=== PATIENT | female | born 1945 | race Two or more races ===

== ENCOUNTER 2020-07-01 15:59 | Emergency (ER) | payer MEDICARE, SELFPAY ==
[2020-07-01 16:05] VITALS: PULSE 66; RESP 16; TEMP 36.7; O2SAT 99; BMI 25.8
[2020-07-01 16:09] VITALS: BP 161/78
--- NOTE | 2020-07-01 16:13 | ED.FALL ---
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 Mode of arrival: EMS Limitations: no limitations History of Present Illness MD complaint: fall Onset (ago): minute(s) Fall from: standing Fall witnessed: no Place fall occurred: home Loss of consciousness: none Prolonged down time: no Symptoms prior to fall: none Context: tripped/slipped Location of injury: other Location of injury - extremities: right: shoulder and elbow Related Data Previous Rx's Medication Instructions Recorded shower chair 1 ea MISCELLANEOUS .mis 99 Days #1 06/30/20 ea toilet seat 1 ea MISCELLANEOUS .each #1 ea 06/30/20 Allergies Allergy/AdvReac Type Severity Reaction Status Date / Time No Known Allergies Allergy Unverified 05/26/20 15:40 N.K.D.A. Allergy Unknown Uncoded 07/12/14 00:00 Review of Systems Review of Systems: Constitutional : No Fever, No Chills ENT/Mouth : No Ear Pain, No Hoarseness, No sore throat Eyes: No Eye Pain, No Swelling, No Redness, No Foreign Body Cardiovascular : No Chest Pain, No SOB Respiratory : No Cough, No Dyspnea Gastrointestinal : No Nausea, No Vomiting, No Diarrhea, No abdominal Pain Genitourinary : No Dysuria, No Hematuria Musculoskeletal : positive joint pain, No Myalgias, No Joint Swelling Skin : No Skin lacerations, No rash Neuro : No Weakness, No Numbness, No Loss of Consciousness, No Dizziness, No Headache Psych : No Anxiety/Panic, No Depression Heme/Lymph: no easy bruising, no Lymphadenopathy Endocrine : No Polyuria, No Polydipsia All other systems reviewed and are negative [facility] Past Medical History Medical History Cataract HTN (hypertension) Hyperlipidemia Social History Social History Alcohol intake: never Smoked in Last 30 Days: No Use of substances other than those prescribed or required for medical reasons: No Advance Directives: No Advance Directives Information Provided: Yes Physical Exam Vital Signs: Vital Signs: Vital Signs Temp Pulse Resp BP Pulse Ox 07/01/20 16:09 161/78 H 07/01/20 16:05 98.1 F 66 16 99 Body Mass Index 25.8 Appearance: Alert. Oriented X3. No acute distress. Eyes: Pupils equal, round and reactive to light. ENT: Pharynx normal. Atraumatic Neck: Normal inspection. Neck supple. removed c collar denies neck pain and has full ROM without pain CVS: Normal heart rate and rhythm. Pulses normal. Respiratory: No respiratory distress. Breath sounds normal. Abdomen: Soft and nontender. Skin: Skin warm and dry. Normal skin color. Normal skin turgor. Extremities: No lower extremity edema. No calf ttp R elbow and R shoulder ttp, distal NV intact, skin intact Neuro: Oriented X 3. No motor deficit. No sensory deficit. Procedures Orthopedic Splinting/Casting Injury #1: Side: right Upper Extremity Injury Location: shoulder Upper Extremity Immobilizer: sling/shoulder immobilizer MDM - Fall MDM Narrative Medical decision making narrative: 75 yo female no on AC therapy here with mechanical fall at home no head or neck pain c/o isolated pain to R elbow and shoulder - xrays ordered, tylenol for pain, dispo per results and findings. Discharge Plan Discharge Prescriptions: No Action shower chair 1 ea miscellaneous .mis 99 Days Qty: 1 RF: 0 toilet seat 1 ea miscellaneous .each Qty: 1 RF: 0
--- NOTE | 2020-07-01 16:17 | XR_ITS ---
EXAMINATION: XR SHOULDER, RIGHT CLINICAL INFORMATION: Right shoulder pain status post fall. COMPARISON: None TECHNIQUE: AP external rotation, Grashey, scapular Y, and axillary views of the right shoulder. FINDINGS: There is an acute, mildly displaced right humeral surgical neck fracture with mild superolateral displacement of the distal fragment. The right glenohumeral joint is intact. Mild right acromioclavicular degenerative joint changes are seen. Subdeltoid soft tissue swelling is seen. XR/XR shoulder RT min 2V IMPRESSION: 1. Acute, mildly displaced right humeral surgical neck fracture with adjacent subdeltoid swelling. 2. Mild right acromioclavicular degenerative joint changes.
--- NOTE | 2020-07-01 16:17 | XR_ITS ---
EXAMINATION: XR ELBOW, RIGHT CLINICAL INFORMATION: Right elbow pain status post trauma. COMPARISON: None TECHNIQUE: Two views of the right elbow. Positioning is suboptimal. FINDINGS: The bones and soft tissues are normal. No fracture or joint effusion. Alignment is anatomic. Joint spaces are maintained. XR/XR elbow RT 2V IMPRESSION: Unremarkable right elbow.
[2020-07-01] MEDS: Acetaminophen 325 MG TABLET 650 MG PO (16:29)
== END 2020-07-01 18:29 | disposition home or self-care (01) ==
PROVIDERS: Emergency Provider Emergency Medicine; PCP Internal Medicine
DX: S42.211A Unspecified displaced fracture of surgical neck of right humerus, initial encounter for closed fracture (principal); W01.0XXA Fall on same level from slipping, tripping and stumbling without subsequent striking against object, initial encounter; Y93.9 Activity, unspecified; Y92.019 Unspecified place in single-family (private) house as the place of occurrence of the external cause; Y99.9 Unspecified external cause status
CPT/HCPCS: 73030; 73070; 99283; 99284

== ENCOUNTER → 2020-08-30 14:50 | Outpatient (REF) | payer MEDICARE, SELFPAY ==
--- NOTE | 2020-08-30 15:00 | CA_ITS ---
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 Normal LV systolic function with grade 1 diastolic dysfunction 2. Mild aortic stenosis and regurgitation 3. Normal RV systolic pressure 4. No pericardial effusion Findings Left Ventricle Normal left ventricular size, thickness, and systolic function. The visually estimated ejection fraction is between 55-60%. There is paradoxical septal motion consistent with a left bundle branch block. Spectral Doppler is indicative of an impaired relaxation filling pattern. E/E prime ratio is <8, consistent with normal filling pressures. Evidence suggests grade I (mild) diastolic dysfunction. Right Ventricle Normal right ventricular cavity size and systolic function. Atria Both atria are normal in size. There is a highly mobile atrial septum noted. Interatrial shunt cannot be excluded. Aortic Valve There is mild calcification of the aortic valve. There is moderate thickening of the aortic valve. There is mild aortic valve stenosis. The peak aortic gradient is 20 mmHg.The mean gradient is 10 mmHg. The aortic valve area is 1.64 cm2. There is mild aortic valve regurgitation. Mitral Valve There is mild anterior and posterior mitral leaflet thickening. There is moderate mitral annular calcification. There is trace mitral valve regurgitation. There is no mitral valve stenosis. Pulmonic Valve The pulmonic valve was not well visualized. Tricuspid Valve Likely normal tricuspid valve structure and function. There is trace tricuspid valve regurgitation. The right ventricular systolic pressure is normal. The right ventricular systolic pressure is 27 mmHg. Normal right atrial pressure. There is no evidence of pulmonary hypertension. Great Vessels All visible segments of the aorta are normal in size. The pulmonary artery was not well visualized. Venous The inferior vena cava is normal in size and collapses greater than 50% with inspiration. Pericardium/Pleural There is no evidence of pericardial effusion. Prior Study Comparison No significant change compared to prior study dated: 04/19/2020. Measurements 2D Linear Measurements IVSd: 0.84 0.6-0.9/0.6-1.0 cm LVIDd: 3.43 3.9-5.3/4.2-5.9 cm LVIDd Index: 2.03 2.4-3.2/2.2-3.1 cm/m2 LVIDs: 2.57 2.0-3.6 cm LVPWd: 0.82 0.7-1.1 cm Ao Root: 2.90 2.1-3.5 cm LA Diam: 2.60 2.7-3.8/3.0-4.0 cm LAIDs Index: 1.54 1.5-2.3 cm/m2 LV Mass: 179.32 67-162/88-224 g LV Mass Index: 106.11 43-95/49-115 g/m2 LVOT Diam: 2.10 3.0+(-)1.3 cm 2D Systolic Function EF 4C: 55.30 >55% EF 2C: 52.60 >55% Mitral Valve MV Pk E: 0.67 MV PK A: 1.03 MV Decel Time: 261.00 E/A: 0.70 E'Lateral: 5.22 E'Medial: 6.09 E/E' Med: 11.10 E/E' Lat: 12.90 PHT: 76.00 MVA PHT: 2.89 Decel [place]: 2.59 Aortic Valve AoV Pk Mina: 2.24 AoV Mn Mina: 1.46 AoV VTI: 0.48 AoV Pk Grad: 20.00 Aov Mn Grad: 10.00 TEDDY Cont.VTI: 1.64 LVOT LVOT Pk Mina: 0.92 LVOT Mn Mina: 0.60 LVOT VTI: 0.23 LVOT Pk Grad: 3.00 LVOT Mn Grad: 2.00 LVOT Diam: 2.10 LVOT Area: 3.46 Diastolic Function MV Pk E: 0.67 MV Pk A: 1.03 E/A: 0.70 E'Medial: 6.09 E/E' Med: 11.10 E' Laterial: 5.22 E/E' Lat: 12.90 Tricuspid Valve TR Pk Mina: 2.44 TR Pk Grad: 24.00 RA Press: 3.00 RVSP: 27.00 Great Vessels Aorta Ao Root-2D: 2.90 2.0-3.7 cm Ao Asc: 2.90 2.1-3.4 cm Pulmonary Valve PV Pk Mina: 0.98 Peak PV Grad: 4.00 Updated in Other Vendor System with Status of Final Js Fried MD electronically signed on 08/31/2020 1:24:37 PM with status of Final
== END ==
LOC: HO.CARD 14:50
PROVIDERS: PCP Internal Medicine; Visit Provider Internal Medicine Cardiovascular Disease
DX: I42.9 Cardiomyopathy, unspecified (principal); I44.7 Left bundle-branch block, unspecified; I35.0 Nonrheumatic aortic (valve) stenosis
CPT/HCPCS: 93306

== ENCOUNTER 2020-09-05 09:11 | Outpatient (REF) | payer MEDICARE, SELFPAY | END 2020-09-05 09:12 | disposition home or self-care (01) | LOC: HO.HMGCLDS 09:11 | PROVIDERS: PCP Internal Medicine; Visit Provider Internal Medicine | DX: Z20.828 Contact with and (suspected) exposure to other viral communicable diseases (principal) | CPT/HCPCS: C9803; U0003 ==

== ENCOUNTER → 2020-10-14 13:12 | Outpatient (BNVA) | payer MEDICARE, SELFPAY | PROVIDERS: Visit Provider Nurse Practitioner Family | DX: I42.9 Cardiomyopathy, unspecified (principal); I35.0 Nonrheumatic aortic (valve) stenosis; I44.7 Left bundle-branch block, unspecified; I10 Essential (primary) hypertension; E78.00 Pure hypercholesterolemia, unspecified | CPT/HCPCS: 99212 ==

== ENCOUNTER 2020-10-17 08:05 | Outpatient (REF) | payer MEDICARE, SELFPAY ==
--- NOTE | ~2020-10-17 | XR_ITS ---
EXAMINATION: XR SHOULDER, RIGHT CLINICAL INFORMATION: Pain right shoulder. COMPARISON: None. TECHNIQUE: 2 views of the right shoulder. FINDINGS: Again visualized is a surgical neck fracture right humerus with superior migration of distal fragment in relation to the humeral head. There is no dislocation. There is mild tom glenoid inferior spurring. The soft tissues are normal. XR/XR shoulder RT min 2V IMPRESSION: Fracture surgical neck right humerus with mild superior migration of distal fragment in relation to the humeral head. The migrated disc fragment is more prominent than the previous study 06/28/2020. The soft tissues are normal.
== END 2020-10-17 08:06 | disposition home or self-care (01) ==
LOC: HO.HOSX 08:05
PROVIDERS: Visit Provider Physician Assistant
DX: S42.201D Unspecified fracture of upper end of right humerus, subsequent encounter for fracture with routine healing (principal)
CPT/HCPCS: 73030; 99202

== ENCOUNTER 2020-10-29 10:53 | Outpatient (REF) | payer MEDICARE, SELFPAY ==
[2020-10-29 11:12] LABS: MANUAL DIFF FLAG NO
[2020-10-29 11:19] LABS: Basophils Percent Auto 0.6 % (0-2); Eosinophils Absolute Auto 0.3 X10*3/uL (0.0-0.4); Hematocrit 38.1 % (37-47); Hemoglobin 12.4 g/dl (12.0-16.0); Lymphocytes Absolute Auto 1.2 X10*3/uL (1.2-4.9); Lymphocytes Percent Auto 23.2 % (20-40); Mean Corpuscular HGB Conc 32.5 g/dl (31.0-35.0); Mean Corpuscular Hemoglobin 29.7 pg (27.0-33.0); Mean Corpuscular Volume 91.1 fL (80-98); Mean Platelet Volume 11.5 fL (9.4-12.3); Monocytes Absolute Auto 0.5 X10*3/uL (0.1-1.2); Monocytes Percent Auto 9.1 % (2-11); Neutrophils Absolute Auto 3.1 X10*3/uL (2.0-8.3); Neutrophils Percent Auto 62.1 % (45-73); Platelet Count 164 X10*3/uL (160-400); Red Blood Count 4.18 X10*6/uL (4.20-5.50); Red Cell Distribution Width 12.6 % (11.0-16.0)
[2020-10-29 11:31] LABS: Glucose Urine UA NEG (NEG); Leukocyte Esterase Urine 1+ (NEG); Nitrite Urine NEG (NEG); Specific Gravity - Urine 1.025 (1.005-1.025); Urine Blood 1+ (NEG); Urine Ketones NEG (NEG); Urine Protein NEG (NEG-TRACE)
[2020-10-29 11:32] LABS: Appearance Urine HAZY; Color Urine YELLOW
[2020-10-29 11:43] LABS: Bacteria Urine 1+ /LPF; Mucus Urine TRACE /LPF; Squamous Epithelial Cell Urine 4+ /LPF
[2020-10-29 11:48] LABS: Alanine Aminotransferase 9 U/L (0-31); Albumin Level 4.2 g/dL (3.5-5.0); Alkaline Phosphatase 82 U/L (39-117); Anion Gap 13 (12-20); Aspartate Amino Transferase 14 U/L (5-31); B Type Natriuretic Peptide 61 pg/mL (<100); Bilirubin Total 0.6 mg/dL (0.0-1.0); Blood Urea Nitrogen 18 mg/dL (9-16); Carbon Dioxide 27 mmol/L (22-29); Chloride 102 mmol/L (96-108); Cholesterol 168 mg/dL; Estimated Glomerular Filt Rate > 60; Glucose Random 99 mg/dL (60-115); HDL Cholesterol 73 mg/dL; LDL Cholesterol Calculated 81 mg/dl; Potassium 4.3 mmol/L (3.3-5.1); Sodium 138 mmol/L (135-145); Total Protein 7.1 g/dL (6.5-8.0); Triglycerides 74 mg/dL
[2020-10-29 12:04] LABS: Free T4 (Free Thyroxine) 0.99 ng/dL (0.71-1.85); Thyroid Stimulating Hormone 1.59 uIU/mL (0.32-4.0); Vitamin D 25-OH Total 21.2 ng/mL (>30)
[2020-10-31 04:36] LABS: Folate 14.3 ng/mL (> or = 4.0); Vitamin B12 323 pg/mL (200-900)
== END 2020-10-29 10:54 | disposition home or self-care (01) ==
LOC: HO.LAB 10:53
PROVIDERS: PCP Internal Medicine; Visit Provider Internal Medicine
DX: I11.0 Hypertensive heart disease with heart failure (principal); I50.9 Heart failure, unspecified; E78.00 Pure hypercholesterolemia, unspecified
CPT/HCPCS: 36415; 80053; 80061; 81001; 82306; 82607; 82746; 83880; 84439; 84443; 85025

== ENCOUNTER 2020-11-04 11:00 | Outpatient (RCR) | payer MEDICARE, SELFPAY ==
[2020-10-18 15:10] VITALS: BP 130/70; PULSE 78; O2SAT 98
--- NOTE | 2020-10-18 16:11 | MHC.PT.PR ---
[facility] [place] Office [place] Office [place] Office [address] [facility] [phone] F: [phone] F: [phone] F: [phone] F: [phone] Physical Therapy Progress Note Diagnosis: HUMERAL FRACTURE Date of Surgery: NA Date of Evaluation: 10/18/20 Treatments to Date: 1 Cancellations to Date: 0 No Shows to Date: 0 Subjective: please see eval Pain Score and Location: 8 Objective Measures: see eval Assessment: Niya is a pleasant 75 yo female unfortunately fell in June and now arrives for PT consult regarding her displaced humeral fracture. Upon exam impairments include decreased AROM, decreased shoulder strength, altered posture, positioning and soft tissue mobility, increased pain. Functional limitations include decreased ability to use right UE for dressing, bathing and transfer assistance, decreased ability to perform homemaking and recreational tasks (sewing) and disrupted sleep, PT Plan: Frequency and Duration: The patient will be seen 2xweek for 4 weeks Treatment Plan: Therapeutic Exercise Dynamic Therapeutic Activities Neuromuscular Re-ed Manual Therapies Taping Home Exercise Program Patient Education Hot or Cold Pack Reviewed/ Agreed with Student Documentation: Therapist: Thank you once again for your referral.
--- NOTE | 2020-10-19 15:04 | MHC.PT.EP ---
[facility] [place] Office [place] Office [place] Office [address] [phone] F: [phone] F: [phone] F: [phone] F: [phone] Physical Therapy Plan of Care Date of Evaluation: 10/18/20 Date of Surgery: NA Diagnosis: HUMERAL FRACTURE Assessment: Niya is a pleasant 75 yo female unfortunately fell in June and now arrives for PT consult regarding her displaced humeral fracture. Upon exam impairments include decreased AROM, decreased shoulder strength, altered posture, positioning and soft tissue mobility, increased pain. Functional limitations include decreased ability to use right UE for dressing, bathing and transfer assistance, decreased ability to perform homemaking and recreational tasks (sewing) and disrupted sleep, Frequency and Duration: The patient will be seen 2xweek for 4 weeks Short Term Goals: independent HEP with family assist in 2 weeks Nursing Home Goals: shoulder elevation AROM to 120 in 4 weeks Independent HEP to dress self utilizing right upper extremity in 4 weeks to return to sewing in 4 weeks without pain greater than 2/10 Treatment Plan: Modalities to reduce pain, spasms and effusion. Manual therapy to restore motion and function. Therapeutic exercise to improve strength and flexibility. Neuromuscular re-education for posture and balance. Therapeutic activities to return to functional activities of daily living. Electronically signed by: SAGAR RENTERIA PT, DPT Please sign and return to therapist. Thank you for your referral.
--- NOTE | 2020-12-05 14:03 | MHC.PT.DC ---
[facility] [place] Office [place] Office [place] Office [address] [phone] F: [phone] F: [phone] F: [phone] F: [phone] Physical Therapy Discharge Report Diagnosis: HUMERAL FRACTURE Date of Surgery: NA Date of Evaluation: 10/18/20 Date of Discharge: Treatments to Date: 4 Cancellations to Date: 5 No Shows to Date: 4 Discharge Status: Improved Function Discharge Summary: At last attended visit pt was progressing well with program, increasing active range of motion as evidenced by the ability to use right UE to brush and fix her hair. She reports improved sleep and increased ability to perform homemaking tasks. Electronically signed by: Romi Ramos PT, DPT Please sign and return to therapist. Thank you for your referral.
== END 2020-12-05 13:47 | disposition other institution (70) ==
LOC: HO.PT 11:00
PROVIDERS: Visit Provider Internal Medicine
DX: S42.309D Unspecified fracture of shaft of humerus, unspecified arm, subsequent encounter for fracture with routine healing (principal)
CPT/HCPCS: 97110; 97161

== ENCOUNTER 2021-04-13 10:59 | Outpatient (REF) | payer MEDICARE, SELFPAY ==
[2021-04-13 13:51] LABS: MANUAL DIFF FLAG NO
[2021-04-13 13:58] LABS: Basophils Percent Auto 0.4 % (0-2); Eosinophils Absolute Auto 0.2 X10*3/uL (0.0-0.4); Eosinophils Percent Auto 4.1 % (0-4); Hematocrit 38.8 % (37-47); Hemoglobin 12.4 g/dl (12.0-16.0); Imm Gran Abs Auto 0.01 X10*3/uL (0.00-0.03); Imm Gran Pct Auto 0.2 % (0.0-0.4); Lymphocytes Absolute Auto 1.3 X10*3/uL (1.2-4.9); Lymphocytes Percent Auto 28.1 % (20-40); Mean Corpuscular Hemoglobin 29.5 pg (27.0-33.0); Mean Corpuscular Volume 92.4 fL (80-98); Mean Platelet Volume 12.4 fL (9.4-12.3); Monocytes Absolute Auto 0.5 X10*3/uL (0.1-1.2); Monocytes Percent Auto 10.3 % (2-11); Neutrophils Absolute Auto 2.7 X10*3/uL (2.0-8.3); Neutrophils Percent Auto 56.9 % (45-73); Platelet Count 194 X10*3/uL (160-400); Red Cell Distribution Width 12.8 % (11.0-16.0); White Blood Count 4.7 X10*3/uL (4.8-10.8)
[2021-04-13 14:23] LABS: B Type Natriuretic Peptide 53 pg/mL (<100)
[2021-04-13 14:26] LABS: Alanine Aminotransferase 8 U/L (0-31); Albumin Level 4.3 g/dL (3.5-5.0); Alkaline Phosphatase 78 U/L (39-117); Anion Gap 15 (12-20); Aspartate Amino Transferase 19 U/L (5-31); Bilirubin Total 0.5 mg/dL (0.0-1.0); Blood Urea Nitrogen 20 mg/dL (9-16); Calcium 9.4 mg/dL (8.4-10.2); Carbon Dioxide 26 mmol/L (22-29); Chloride 104 mmol/L (96-108); Cholesterol 232 mg/dL; Estimated Glomerular Filt Rate > 60; Glucose Random 92 mg/dL (60-115); HDL Cholesterol 66 mg/dL; LDL Cholesterol Calculated 143 mg/dl; Magnesium 2.1 mg/dL (1.6-2.6); Sodium 140 mmol/L (135-145); Total Protein 7.6 g/dL (6.5-8.0); Triglycerides 117 mg/dL
[2021-04-13 14:44] LABS: Free T4 (Free Thyroxine) 0.92 ng/dL (0.71-1.85); Thyroid Stimulating Hormone 2.43 uIU/mL (0.32-4.0)
[2021-04-13 15:10] LABS: Folate 16.8 ng/mL (> or = 4.0); Vitamin B12 361 pg/mL (200-900)
== END 2021-04-13 11:00 | disposition home or self-care (01) ==
LOC: HO.HMGCLDS 10:59
PROVIDERS: PCP Internal Medicine; Visit Provider Internal Medicine
DX: I50.9 Heart failure, unspecified (principal); E78.00 Pure hypercholesterolemia, unspecified; I25.5 Ischemic cardiomyopathy
CPT/HCPCS: 36415; 80053; 80061; 82607; 82746; 83735; 83880; 84439; 84443; 85025

== ENCOUNTER 2021-04-20 08:31 | Outpatient (REF) | payer MEDICARE, SELFPAY ==
--- NOTE | ~2021-04-20 | XR_ITS ---
EXAMINATION: XR KNEE STANDING, BILATERAL XR KNEE, RIGHT CLINICAL INFORMATION: Right knee pain. COMPARISON: AP standing view of the right and left knee. Lateral and sunrise views of the right knee. TECHNIQUE: Right and left knee radiographs dated 12/03/2014. FINDINGS: RIGHT KNEE: Severe medial compartment joint space narrowing with bony remodeling and subchondral sclerosis. Tricompartmental marginal osteophytes. No acute fracture or dislocation. Ossified loose bodies within the Jimenez's cyst, unchanged. Moderate joint effusion. LEFT KNEE: Severe medial compartment joint space narrowing with mild bony remodeling and subchondral sclerosis. Tricompartmental marginal osteophytes. XR/XR knee standing BI IMPRESSION: 1. Right knee tricompartment osteoarthritis, most severe within the medial compartment. Findings are progressed when compared to the prior examination. Moderate joint effusion and ossified loose bodies within the Jimenez's cyst. 2. Left knee tricompartmental osteoarthritis, minimally progressed when compared to the prior radiographs.
--- NOTE | ~2021-04-20 | XR_ITS ---
EXAMINATION: XR KNEE STANDING, BILATERAL XR KNEE, RIGHT CLINICAL INFORMATION: Right knee pain. COMPARISON: AP standing view of the right and left knee. Lateral and sunrise views of the right knee. TECHNIQUE: Right and left knee radiographs dated 12/03/2014. FINDINGS: RIGHT KNEE: Severe medial compartment joint space narrowing with bony remodeling and subchondral sclerosis. Tricompartmental marginal osteophytes. No acute fracture or dislocation. Ossified loose bodies within the Jimenez's cyst, unchanged. Moderate joint effusion. LEFT KNEE: Severe medial compartment joint space narrowing with mild bony remodeling and subchondral sclerosis. Tricompartmental marginal osteophytes. XR/XR knee RT 2V IMPRESSION: 1. Right knee tricompartment osteoarthritis, most severe within the medial compartment. Findings are progressed when compared to the prior examination. Moderate joint effusion and ossified loose bodies within the Jimenez's cyst. 2. Left knee tricompartmental osteoarthritis, minimally progressed when compared to the prior radiographs.
== END 2021-04-20 08:32 | disposition home or self-care (01) ==
LOC: HO.HOSX 08:31
PROVIDERS: Visit Provider Physician Assistant
DX: M17.0 Bilateral primary osteoarthritis of knee (principal); M25.561 Pain in right knee
CPT/HCPCS: 20610; 73560; 73565; 99202; J1020

== ENCOUNTER → 2021-04-27 14:39 | Outpatient (BNVA) | payer MEDICARE, SELFPAY | PROVIDERS: PCP Internal Medicine; Visit Provider Internal Medicine Cardiovascular Disease | DX: I50.9 Heart failure, unspecified (principal); I35.0 Nonrheumatic aortic (valve) stenosis; I44.7 Left bundle-branch block, unspecified | CPT/HCPCS: 93005; 99212 ==

== ENCOUNTER 2021-07-01 09:01 | Outpatient (REF) | payer MEDICARE, SELFPAY ==
--- NOTE | ~2021-07-01 | MM_ITS ---
EXAMINATION: MM SCREENING DIGITAL BREAST TOMOSYNTHESIS, BILATERAL CLINICAL INFORMATION: Screening. Asymptomatic. The lifetime risk of breast cancer based on the Tyrer-Cuzick Model is 2%. COMPARISON: Mammography: 03/05/2020, 02/14/2019, 12/27/2017 TECHNIQUE: Digital breast tomosynthesis is performed in both the craniocaudal and mediolateral oblique views along with computer-aided detection (CAD). Synthesized 2D images are generated from the tomosynthesis. FINDINGS: The breasts are almost entirely fatty (ACR BI-RADS breast composition Category a). There are no significant masses, abnormal calcifications, or other abnormalities. Background stromal markings are stable. The axilla and skin contours are unremarkable. No significant changes. MM/MM tomosynthesis screening BI IMPRESSION: No mammographic evidence of malignancy. ASSESSMENT: BI-RADS 1: Negative RECOMMENDATION: Routine annual mammography screening. This patient's information was entered into a reminder system with a target due date for their next mammogram.
== END 2021-07-01 09:02 | disposition home or self-care (01) ==
LOC: HO.MAMMO 09:01
PROVIDERS: Visit Provider Internal Medicine
DX: Z12.31 Encounter for screening mammogram for malignant neoplasm of breast (principal)
CPT/HCPCS: 77063; 77067

== ENCOUNTER 2021-07-29 10:36 | Outpatient (REF) | payer MEDICARE, SELFPAY ==
[2021-07-29 13:42] LABS: MANUAL DIFF FLAG NO
[2021-07-29 14:07] LABS: Cholesterol 199 mg/dL; HDL Cholesterol 67 mg/dL; LDL Cholesterol Calculated 113 mg/dl; Triglycerides 95 mg/dL
[2021-07-29 14:12] LABS: B Type Natriuretic Peptide 35 pg/mL (<100); Basophils Percent Auto 0.6 % (0-2); Eosinophils Absolute Auto 0.3 X10*3/uL (0.0-0.4); Eosinophils Percent Auto 5.5 % (0-4); Hematocrit 39.3 % (37.0-47.0); Hemoglobin 12.9 g/dl (12.0-16.0); Imm Gran Abs Auto 0.01 X10*3/uL (0.00-0.03); Imm Gran Pct Auto 0.2 % (0.0-0.4); Lymphocytes Absolute Auto 1.1 X10*3/uL (1.2-4.9); Lymphocytes Percent Auto 23.5 % (20-40); Mean Corpuscular HGB Conc 32.8 g/dl (31.0-35.0); Mean Corpuscular Hemoglobin 30.7 pg (27.0-33.0); Mean Corpuscular Volume 93.6 fL (80.0-98.0); Mean Platelet Volume 12.2 fL (9.4-12.3); Monocytes Absolute Auto 0.4 X10*3/uL (0.1-1.2); Monocytes Percent Auto 8.2 % (2-11); Platelet Count 205 X10*3/uL (160-400); Red Cell Distribution Width 12.5 % (11.0-16.0); White Blood Count 4.8 X10*3/uL (4.8-10.8)
== END 2021-07-29 10:37 | disposition home or self-care (01) ==
LOC: HO.HMGCLDS 10:36
PROVIDERS: PCP Internal Medicine; Visit Provider Internal Medicine
DX: E78.00 Pure hypercholesterolemia, unspecified (principal); I50.9 Heart failure, unspecified; I25.5 Ischemic cardiomyopathy
CPT/HCPCS: 36415; 80061; 83880; 85025

== ENCOUNTER 2021-08-29 11:11 | Emergency (ER) | payer MEDICARE, SELFPAY ==
--- NOTE | ~2021-08-29 | XR_ITS ---
EXAMINATION: LEFT KIDNEY AND LEFT ELBOW. CLINICAL INFORMATION: Fall, question fracture. COMPARISON: None TECHNIQUE: 4 views left knee and 3 views left elbow. FINDINGS: Left knee: There is loss of medial and patellofemoral compartment joint space with tricompartment moderate periarticular spurring. No bony erosive changes seen. No lytic or sclerotic process seen. No abnormal joint effusion. Left elbow: There is no visible acute fracture, dislocation or subluxation seen. The positive anterior fat pad sign suspicious for a fracture however none is visualized. XR/XR knee LT 4V IMPRESSION: Degenerative arthritic changes left knee without any visible acute fracture or dislocation. Positive anterior fat pad sign but no visible fracture seen at this time. Recommend repeat left elbow x-ray and 1-2 weeks.
--- NOTE | ~2021-08-29 | CT_ITS ---
EXAMINATION: CT FACIAL BONES WITHOUT CONTRAST CLINICAL INFORMATION: Fall. Question fracture. COMPARISON: None TECHNIQUE: Axial images through the facial bones without contrast. Sagittal and coronal reconstructions on the technologist workstation were performed. This CT examination was performed using dose optimization techniques as appropriate, variously including the following: *Automated exposure control *Adjustment of mA and/or kV according to patient size (this includes techniques or standardized protocols for targeted exams where dose is matched to indication/reason for exam; i.e. extremities or head) *Use of iterative reconstruction technique DLP: 351 mGy-cm FINDINGS: There are bilateral nasal bone fractures. There is a fracture of the nasal septum. The nasal septum is deviated to the right. No other fracture is seen. The temporomandibular joints are normal. There is membranous soft tissue thickening seen in the paranasal sinuses. There is soft tissue swelling over the nose. The orbits are normal appearing. The temporomandibular joints are normal. CT/CT facial bones wo con IMPRESSION: Bilateral nasal bone fractures and fracture of the nasal septum.
--- NOTE | ~2021-08-29 | CT_ITS ---
EXAMINATION: CT HEAD WITHOUT CONTRAST CLINICAL INFORMATION: Fall COMPARISON: None TECHNIQUE: Contiguous axial imaging was performed from the skull base to vertex without intravenous administration of contrast. This CT examination was performed using dose optimization techniques as appropriate, variously including the following: *Automated exposure control *Adjustment of mA and/or kV according to patient size (this includes techniques or standardized protocols for targeted exams where dose is matched to indication/reason for exam; i.e. extremities or head) *Use of iterative reconstruction technique DLP: 587 mGy-cm FINDINGS: There is no evidence of an extra-axial collection. There is no evidence of intra-axial or extra-axial hemorrhage. The ventricles and extra-axial CSF spaces are prominent suggestive of generalized atrophy. There is nonspecific periventricular white matter disease. No mass, mass effect or infarct is seen. There is some inflammatory seen in the sphenoid sinus and inferior right mastoid air cells. No skull fracture is seen. CT/CT head/brain wo con IMPRESSION: No acute findings. Mild generalized atrophy and nonspecific periventricular white matter disease.
--- NOTE | ~2021-08-29 | XR_ITS ---
EXAMINATION: LEFT KIDNEY AND LEFT ELBOW. CLINICAL INFORMATION: Fall, question fracture. COMPARISON: None TECHNIQUE: 4 views left knee and 3 views left elbow. FINDINGS: Left knee: There is loss of medial and patellofemoral compartment joint space with tricompartment moderate periarticular spurring. No bony erosive changes seen. No lytic or sclerotic process seen. No abnormal joint effusion. Left elbow: There is no visible acute fracture, dislocation or subluxation seen. The positive anterior fat pad sign suspicious for a fracture however none is visualized. XR/XR elbow LT 2V IMPRESSION: Degenerative arthritic changes left knee without any visible acute fracture or dislocation. Positive anterior fat pad sign but no visible fracture seen at this time. Recommend repeat left elbow x-ray and 1-2 weeks.
--- NOTE | ~2021-08-29 | CT_ITS ---
EXAMINATION: CT CERVICAL SPINE WITHOUT CONTRAST CLINICAL INFORMATION: Fall COMPARISON: None TECHNIQUE: Axial images through the cervical spine without contrast. Sagittal and coronal reconstructions were obtained on the technologist workstation. This CT examination was performed using dose optimization techniques as appropriate, variously including the following: *Automated exposure control *Adjustment of mA and/or kV according to patient size (this includes techniques or standardized protocols for targeted exams where dose is matched to indication/reason for exam; i.e. extremities or head) *Use of iterative reconstruction technique DLP: 355 mGy-cm FINDINGS: Bone alignment is normal. No fracture or dislocation is seen. There is degenerative spondylosis at C4-C5 C5-C6 and C6-C7. There are degenerative changes at the C1 dens articulation. There is bilateral multilevel facet arthritis. Disc spaces are normal. Prevertebral soft tissues are normal. There is soft tissue ossification posterior to the C5 and C6 spinous processes likely related to old soft tissue trauma. Lung apices are clear. CT/CT cervical spine wo con IMPRESSION: No fracture or dislocation. Degenerative changes. Fleischner guidelines were followed.
[2021-08-29 11:18] VITALS: BP 122/76; PULSE 88; O2SAT 97
[2021-08-29 11:26] VITALS: BP 170/79; PULSE 74; RESP 16; O2SAT 97; BMI 24.2
--- NOTE | 2021-08-29 14:25 | ED.GENADULT ---
HPI - General Adult General Chief complaint: Fall Stated complaint: fall Time Seen by Provider: 08/29/21 11:42 Source: patient Mode of arrival: ambulatory Limitations: no limitations History of Present Illness HPI narrative: 76-year-old female presents to ED for mechanical fall today. Patient was in a supermarket and was pushing a shopping cart and tripped over Sandals and fell onto his face. Mother states patient did not lose consciousness. Patient only complains of left elbow pain. Patient did not lose any consciousness. patient denies feeling dizzy or having any headache/chest pain/abdominal pain before passing out. Related Data Home Medications Medication Instructions Recorded Confirmed alprazolam 0.25 mg tablet 0.25 mg PO DAILY PRN 10/03/20 02/01/21 furosemide 20 mg tablet 20 mg PO DAILY 10/03/20 02/01/21 Previous Rx's Medication Instructions Recorded toilet seat 1 ea MISCELLANEOUS .each #1 ea 07/05/20 ascorbate calcium (vitamin C) 500 500 mg PO DAILY #30 tab 10/03/20 mg tablet cholecalciferol (vitamin D3) 50 50 mcg PO DAILY #60 cap 10/03/20 mcg (2,000 unit) capsule cyanocobalamin (vitamin B-12) 1,000 mcg PO DAILY #30 cap 10/03/20 1,000 mcg capsule donepezil 5 mg tablet (Aricept) 5 mg PO BEDTIME #30 tab 10/03/20 citalopram 10 mg tablet 10 mg PO DAILY #90 tab 12/06/20 aspirin 81 mg tablet,delayed 81 mg PO DAILY 90 Days #90 tab 05/25/21 release aspirin 81 mg tablet,delayed 81 mg PO DAILY 90 Days #90 tab 05/25/21 release (Adult Aspirin Regimen) atorvastatin 20 mg tablet 20 mg PO DAILY #90 tab 05/25/21 carvedilol 25 mg tablet 25 mg PO BID 90 Days #180 tab 05/25/21 losartan 100 mg tablet 100 mg PO DAILY 90 Days #90 tab 05/25/21 amoxicillin 875 mg-potassium 1 tab PO Q12H 10 Days #20 tab 08/29/21 clavulanate 125 mg tablet (Augmentin) Allergies Allergy/AdvReac Type Severity Reaction Status Date / Time No Known Allergies Allergy Verified 07/13/21 14:36 Review of Systems Review of Systems: Yes all other systems are reviewed and are negative Constitutional: Constitutional: Reports as per HPI and Reports no additional constitutional complaints Eyes: Eyes: Reports as per HPI and Reports no additional eye complaints ENT: Reports system reviewed and no additional complaints, except as documented and Reports as per HPI Comments: laceration on nares PMFSH Past Medical History Medical History Anxiety Aortic stenosis Cataract Heart failure, unspecified HTN (hypertension) Hypercholesterolemia Hyperlipidemia Impaired glucose tolerance Ischemic cardiomyopathy LBBB (left bundle branch block) Osteoarthritis Vitamin D deficiency Surgical History History of cataract surgery History of section Family History Family History Father Cancer Mother Hypertension Brother No problems noted. Sister No problems noted. Son No problems noted. Daughter No problems noted. Social History Social History Housing: Apartment Alcohol intake: never Patient Tobacco Use Status: Never used Tobacco e-Cigarette/Vaping Use: Never Used Second Hand Smoke Exposure: No Advance Directives: Yes Advance Directives Information Provided: Yes Advance Directives on File: No Current occupational status: disabled Current occupation: rt handed Physical Exam Vital Signs: Vital Signs: Last Vital Signs Pulse 74 08/29/21 11:26 Resp 16 08/29/21 11:26 BP 170/79 H 08/29/21 11:26 Pulse Ox 97 08/29/21 11:26 BMI result Body Mass Index 24.2 Const: General: cooperative, healthy appearing, comfortable, no acute distress, well developed, alert, awake and Physically active Orientation/consciousness: patient oriented x3 HENMT: Head: Yes normal to inspection, Yes No palpable skull fracture present and Yes normocephalic Head images: 1. Very superficial laceration/abrasion that does not need suture repair 2. Positive for ecchymosis Eyes: General: appearance normal, both eyes and all related structures Neck: Neck: Yes normal visual inspection, Yes full ROM, Yes no lymphadenopathy, Yes no meningeal signs, Yes trachea midline, Yes supple, No anterior neck swelling and No tender Chest: Chest palpation & inspection: normal inspection of the chest and normal palpation of entire chest wall Resp: Effort & Inspection: normal respiratory effort and able to speak in complete sentences Auscultation: clear to auscultation bilaterally Cardio: Jugular venous distension: no JVD Heart sounds: S1 normal heart sound present and S2 normal heart sound present GI: Inspection: Yes normal to inspection and No abdominal wall ecchymosis Palpation (GI): Soft to palpation, not firm, nontender, no guarding and not rigid : General: No CVA tenderness and Yes no CVA tenderness Back/Spine/Pelvis: Back: no CVA tenderness, No CVA tenderness and No back tenderness Skin: General skin exam: no rashes or lesions noted and elasticity normal Neuro: General: patient oriented x3, gait normal, no meningeal signs and CN's II-XI intact bilaterally Cranial nerves: Yes CN's II-XII intact bilaterally Extrem: General: Yes normal to inspection and Yes full ROM Elbow/forearm/wrist images: 1. Positive for tenderness on palpation. Patient complete range of motion of elbow. Motor/neuro/vascular exam intact. Patient able to flex and extend elbow but with pain. Knee images: 1. Positive for abrasion and tenderness. Negative for ecchymosis, deformity, elasticity, or crepitus. Motor/neuro/vascular exam intact. Psych: Appearance: grossly normal, well kempt and not disheveled Course Course Course Narrative: Mechanical fall. no labs indicated Reevaluation(s) Reevaluation #1: Elbow fracture and nasal fracture. Negative for nasal septal hematoma. Patient is discharged with antibiotics. Patient placed in posterior splint and sling. Time: 15:58 Discharge Plan Discharge Clinical Impression: Elbow fracture, left, Fracture of nasal bones Patient Disposition: Home, Self-Care Instructions: Nasal Fracture (ED), Elbow Fracture (ED), How to Use a Sling (ED) Additional Instructions: Mckeon tomograf?a computarizada muestra fractura nasal y fractura de codo. Deber? realizar un seguimiento con fractura de codo del pie ortop?dico y cirug?a maxilofacial por fractura nasal. Regrese al servicio de urgencias de inmediato si tiene dolor de pecho, dificultad para respirar, sangrado rectal, v?mitos de cabrera, dolor abdominal, dolor de pecho, dificultad para respirar, dolor de vivi, mareos, sangrado de los o?dos o cualquier otro s?ntoma que le preocupe. No tome delon?n CLIFTON, aspirina, Plavix, con Coumadin hasta el seguimiento.No se suene la nariz ni estornude. Please call [facility] for follow up at [phone]. Address [address] [place] [id number] Prescriptions: New amoxicillin-pot clavulanate [Augmentin] 875-125 mg tablet 1 tab PO Q12H 10 Days Qty: 20 RF: 0 No Action toilet seat 1 ea miscellaneous .each Qty: 1 RF: 0 citalopram 10 mg tablet 10 mg PO DAILY Qty: 90 RF: 2 aspirin [Adult Aspirin Regimen] 81 mg tablet,delayed release (DR/EC) 81 mg PO DAILY 90 Days Qty: 90 RF: 3 atorvastatin 20 mg tablet 20 mg PO DAILY Qty: 90 RF: 1 carvedilol 25 mg tablet 25 mg PO BID 90 Days Qty: 180 RF: 2 losartan 100 mg tablet 100 mg PO DAILY 90 Days Qty: 90 RF: 2 aspirin 81 mg tablet,delayed release (DR/EC) 81 mg PO DAILY 90 Days Qty: 90 RF: 2 alprazolam 0.25 mg tablet 0.25 mg PO DAILY PRNRF: 0 furosemide 20 mg tablet 20 mg PO DAILY RF: 0 cyanocobalamin (vitamin B-12) 1,000 mcg capsule 1,000 mcg PO DAILY Qty: 30 RF: 3 cholecalciferol (vitamin D3) 50 mcg (2,000 unit) capsule 50 mcg PO DAILY Qty: 60 RF: 0 ascorbate calcium (vitamin C) 500 mg tablet 500 mg PO DAILY Qty: 30 RF: 0 donepezil [Aricept] 5 mg tablet 5 mg PO BEDTIME Qty: 30 RF: 2 Referrals: Jeremy Gaming MD [Physician] - 2 days (Left elbow fracture.) Ryan Oh [Physician] - 2 days (nasal fracture) Interventions: ED Discharge Assessment Last Done: 08/29/21 16:37 Discharge Date/Time: 08/29/21 16:39 Print Language: Ukrainian
[2021-08-29] MEDS: Diphth,Pertus(ACell),Tet Adult 0.5 ML SYRINGE IM (15:05)
== END 2021-08-29 16:39 | disposition home or self-care (01) ==
PROVIDERS: Emergency Provider Emergency Medicine; PCP Internal Medicine
DX: S02.2XXA Fracture of nasal bones, initial encounter for closed fracture (principal); S42.402A Unspecified fracture of lower end of left humerus, initial encounter for closed fracture; S80.212A Abrasion, left knee, initial encounter; I10 Essential (primary) hypertension; W01.0XXA Fall on same level from slipping, tripping and stumbling without subsequent striking against object, initial encounter; Y93.89 Activity, other specified; Y92.512 Supermarket, store or market as the place of occurrence of the external cause; Y99.9 Unspecified external cause status
CPT/HCPCS: 70450; 70486; 72125; 73070; 73564; 90471; 90715; 99282; 99284

== ENCOUNTER 2021-08-30 03:38 | Emergency (ER) | payer MEDICARE, SELFPAY ==
--- NOTE | ~2021-08-30 | XR_ITS ---
EXAMINATION: XR HAND, LEFT CLINICAL INFORMATION: Fall COMPARISON: None TECHNIQUE: 3 views of the left hand. FINDINGS: No fracture or dislocation. Alignment is maintained. Diffuse joint space narrowing throughout the interphalangeal joints. There is sclerosis with osteophyte formation and gull wing deformity. Advanced degenerative changes at the triscaphe joint and first carpometacarpal joint. XR/XR hand wrist LT IMPRESSION: No acute fracture or malalignment. Advanced degenerative changes throughout the hand and wrist. Appearance of erosive osteoarthritis.
[2021-08-30 03:48] VITALS: BP 179/60; PULSE 99; RESP 20; TEMP 37; O2SAT 95; BMI 30.2
--- NOTE | 2021-08-30 04:24 | ED.EXTPRO ---
HPI - Extremity Problem General Chief complaint: Extremity Injury, Upper Stated complaint: arm pain Time Seen by Provider: 08/30/21 04:24 Source: patient Mode of arrival: ambulatory Limitations: no limitations History of Present Illness HPI Narrative: Patient fell slipped and fell 2 days ago landing on her left hand was seen here x-ray of the hand not done x-ray of the elbow showed mild joint effusion, splint was applied patient comes here as she has too much pain in the left wrist area and at the base of left thumb Related Data Home Medications Medication Instructions Recorded Confirmed alprazolam 0.25 mg tablet 0.25 mg PO DAILY PRN 10/03/20 02/01/21 furosemide 20 mg tablet 20 mg PO DAILY 10/03/20 02/01/21 Previous Rx's Medication Instructions Recorded toilet seat 1 ea MISCELLANEOUS .each #1 ea 07/05/20 ascorbate calcium (vitamin C) 500 500 mg PO DAILY #30 tab 10/03/20 mg tablet cholecalciferol (vitamin D3) 50 50 mcg PO DAILY #60 cap 10/03/20 mcg (2,000 unit) capsule cyanocobalamin (vitamin B-12) 1,000 mcg PO DAILY #30 cap 10/03/20 1,000 mcg capsule donepezil 5 mg tablet (Aricept) 5 mg PO BEDTIME #30 tab 10/03/20 citalopram 10 mg tablet 10 mg PO DAILY #90 tab 12/06/20 aspirin 81 mg tablet,delayed 81 mg PO DAILY 90 Days #90 tab 05/25/21 release aspirin 81 mg tablet,delayed 81 mg PO DAILY 90 Days #90 tab 05/25/21 release (Adult Aspirin Regimen) atorvastatin 20 mg tablet 20 mg PO DAILY #90 tab 05/25/21 carvedilol 25 mg tablet 25 mg PO BID 90 Days #180 tab 05/25/21 losartan 100 mg tablet 100 mg PO DAILY 90 Days #90 tab 05/25/21 amoxicillin 875 mg-potassium 1 tab PO Q12H 10 Days #20 tab 08/29/21 clavulanate 125 mg tablet (Augmentin) tramadol 50 mg tablet 50 mg PO Q6H PRN #20 tab 08/30/21 Allergies Allergy/AdvReac Type Severity Reaction Status Date / Time No Known Allergies Allergy Verified 07/13/21 14:36 Review of Systems Review of Systems: Yes all other systems are reviewed and are negative PMFSH Past Medical History Medical History Anxiety Aortic stenosis Cataract Heart failure, unspecified HTN (hypertension) Hypercholesterolemia Hyperlipidemia Impaired glucose tolerance Ischemic cardiomyopathy LBBB (left bundle branch block) Osteoarthritis Vitamin D deficiency Surgical History History of cataract surgery History of section Family History Family History Father Cancer Mother Hypertension Brother No problems noted. Sister No problems noted. Son No problems noted. Daughter No problems noted. Social History Social History Housing: Apartment Alcohol intake: never Patient Tobacco Use Status: Never used Tobacco e-Cigarette/Vaping Use: Never Used Second Hand Smoke Exposure: No Advance Directives: No Advance Directives Information Provided: No Current occupational status: disabled Current occupation: rt handed Physical Exam Vital Signs: Vital Signs: Last Vital Signs Temp 98.6 F 08/30/21 03:48 Pulse 99 08/30/21 03:48 Resp 20 08/30/21 03:48 BP 179/60 H 08/30/21 03:48 Pulse Ox 95 08/30/21 03:48 BMI result Body Mass Index 30.2 Const: General: cooperative, comfortable, no acute distress and well developed Orientation/consciousness: patient oriented x3 HENMT: Head: Yes normocephalic and Yes periorbital ecchymosis Neck: Neck: Yes normal visual inspection and Yes full ROM Resp: Effort & Inspection: normal respiratory effort Auscultation: clear to auscultation bilaterally Cardio: Palpation: normal PMI Rate: regular rate Neuro: General: patient oriented x3 and gait normal Extrem: Hand/finger images: 1. Tenderness with swelling neurovascular intact MDM - Extremity (Nontraumatic) MDM Narrative Medical decision making narrative: X-ray negative for fracture of left hand will give pain medication for contusion of left hand patient is to follow Orthopedics Discharge Plan Discharge Clinical Impression: Contusion of hand, left Qualifiers: Encounter type: initial encounter Qualified Code(s): S60.222A - Contusion of left hand, initial encounter Occult closed fracture of left elbow Qualifiers: Encounter type: initial encounter Qualified Code(s): S42.402A - Unspecified fracture of lower end of left humerus, initial encounter for closed fracture Patient Disposition: Home, Self-Care Instructions: Elbow Fracture (ED), Contusion in Adults (ED) Additional Instructions: Wear the sling as given to you Pain medication as prescribed keep your left arm elevated Prescriptions: New tramadol 50 mg tablet 50 mg PO Q6H PRN (Reason: pain) Qty: 20 RF: 0 No Action toilet seat 1 ea miscellaneous .each Qty: 1 RF: 0 citalopram 10 mg tablet 10 mg PO DAILY Qty: 90 RF: 2 aspirin [Adult Aspirin Regimen] 81 mg tablet,delayed release (DR/EC) 81 mg PO DAILY 90 Days Qty: 90 RF: 3 atorvastatin 20 mg tablet 20 mg PO DAILY Qty: 90 RF: 1 carvedilol 25 mg tablet 25 mg PO BID 90 Days Qty: 180 RF: 2 losartan 100 mg tablet 100 mg PO DAILY 90 Days Qty: 90 RF: 2 aspirin 81 mg tablet,delayed release (DR/EC) 81 mg PO DAILY 90 Days Qty: 90 RF: 2 amoxicillin-pot clavulanate [Augmentin] 875-125 mg tablet 1 tab PO Q12H 10 Days Qty: 20 RF: 0 alprazolam 0.25 mg tablet 0.25 mg PO DAILY PRNRF: 0 furosemide 20 mg tablet 20 mg PO DAILY RF: 0 cyanocobalamin (vitamin B-12) 1,000 mcg capsule 1,000 mcg PO DAILY Qty: 30 RF: 3 cholecalciferol (vitamin D3) 50 mcg (2,000 unit) capsule 50 mcg PO DAILY Qty: 60 RF: 0 ascorbate calcium (vitamin C) 500 mg tablet 500 mg PO DAILY Qty: 30 RF: 0 donepezil [Aricept] 5 mg tablet 5 mg PO BEDTIME Qty: 30 RF: 2
[2021-08-30] MEDS: oxyCODONE HCl Immed Release 5 MG TABLET PO (05:35)
[2021-08-30 05:40] VITALS: BP 160/84; PULSE 88; RESP 16
== END 2021-08-30 05:57 | disposition home or self-care (01) ==
PROVIDERS: Emergency Provider Internal Medicine
DX: S60.222A Contusion of left hand, initial encounter (principal); S42.402A Unspecified fracture of lower end of left humerus, initial encounter for closed fracture; S42.334A Nondisplaced oblique fracture of shaft of humerus, right arm, initial encounter for closed fracture; W01.0XXA Fall on same level from slipping, tripping and stumbling without subsequent striking against object, initial encounter; Y93.9 Activity, unspecified; Y92.9 Unspecified place or not applicable; Y99.9 Unspecified external cause status; Z79.899 Other long term (current) drug therapy
CPT/HCPCS: 73110; 73130; 99284

== ENCOUNTER 2021-09-14 07:39 | Outpatient (REF) | payer MEDICARE, SELFPAY ==
--- NOTE | ~2021-09-14 | XR_ITS ---
EXAMINATION: XR ELBOW, LEFT CLINICAL INFORMATION: Pain in the elbow COMPARISON: None TECHNIQUE: AP, lateral, and oblique views of the left elbow. FINDINGS: No fracture or dislocation. Alignment is anatomic. Joint spaces are maintained. No elbow joint effusion. The soft tissues are somewhat swollen along the medial aspect. XR/XR elbow LT min 3V IMPRESSION: Mild soft tissue swelling. No osseous abnormality.
== END 2021-09-14 07:40 | disposition home or self-care (01) ==
LOC: HO.HOSX 07:39
PROVIDERS: Visit Provider Physician Assistant
DX: S50.02XA Contusion of left elbow, initial encounter (principal); S63.502A Unspecified sprain of left wrist, initial encounter; W18.30XA Fall on same level, unspecified, initial encounter; Y93.9 Activity, unspecified; Y92.9 Unspecified place or not applicable; Y99.9 Unspecified external cause status
CPT/HCPCS: 73080; 99202

== ENCOUNTER → 2021-11-02 07:37 | Outpatient (REF) | payer MEDICARE, SELFPAY ==
--- NOTE | 2021-11-02 07:40 | CA_ITS ---
Transthoracic Echocardiogram Patient (Last, First, Middle): Niya Noriega, Gender: Female Date of : 1945 Age: 76 Procedure Date: 11/02/2021 Procedure Type: Transthoracic Echocardiogram Location: OP Height: 160.02 cm Weight: 61.24 kg BSA: 1.64 m2 Heart Rate: bpm BP: 148 / 78 mmHg Electrical Automation Engineer: MELINDA Referring MD: Js Fried MD Symptoms: I35.0 - Nonrheumatic aortic (valve) stenosis Study Quality: Good ECG Rhythm: Sinus Conclusions: - The left ventricular systolic function is normal. The calculated ejection fraction is 59% by biplane method. - There is moderate calcification of the aortic valve. There is mild to moderate aortic valve stenosis. - There is moderate mitral annular calcification. Findings Left Ventricle Normal left ventricular cavity size. There is normal left ventricular wall thickness. The left ventricular systolic function is normal. The calculated ejection fraction is 59% by biplane method. There is no evidence of regional wall motion abnormalities. E/E prime ratio is between 8 and 15 consistent with indeterminate filling pressures. Evidence suggests grade I (mild) diastolic dysfunction. Right Ventricle Normal right ventricular cavity size and systolic function. Atria Both atria are normal in size. Aortic Valve There is moderate calcification of the aortic valve. There is mild to moderate aortic valve stenosis. The peak aortic velocity is 2.35 m/s with a calculated peak gradient of 22 mmHg. The mean gradient is 12 mmHg. The aortic valve area is 1.29 cm2. There is mild aortic valve regurgitation. Dimensionless index 0.4. Stroke volume index 40cc. Mitral Valve There is moderate mitral annular calcification. There is trace mitral valve regurgitation. There is no mitral valve stenosis. Pulmonic Valve The pulmonic valve was not well visualized. Tricuspid Valve Normal tricuspid valve structure. There is trace tricuspid valve regurgitation. The pulmonary artery systolic pressure is normal. Great Vessels The aorta was not well visualized. The sinuses of valsalva is normal in size. Small plaque is seen in the sino tubular ridge. Venous The inferior vena cava is normal in size and collapses greater than 50% with inspiration. Pericardium/Pleural There is no evidence of pericardial effusion. Prior Study Comparison Changes noted compared to prior study dated: 08/30/2020. Slight progression of aortic valve stenosis. Measurements 2D Linear Measurements IVSd: 0.82 0.6-0.9/0.6-1.0 cm LVIDd: 3.91 3.9-5.3/4.2-5.9 cm LVIDd Index: 2.38 2.4-3.2/2.2-3.1 cm/m2 LVIDs: 2.91 2.0-3.6 cm LVPWd: 1.02 0.7-1.1 cm Ao Root: 2.90 2.1-3.5 cm LA Diam: 2.50 2.7-3.8/3.0-4.0 cm LAIDs Index: 1.52 1.5-2.3 cm/m2 LV Mass: 135.13 67-162/88-224 g LV Mass Index: 82.40 43-95/49-115 g/m2 LVOT Diam: 2.00 3.0+(-)1.3 cm 2D Systolic Function EF 4C: 56.10 >55% EF 2C: 60.60 >55% EF BiP: 58.50 >55% Mitral Valve MV Pk E: 0.72 MV PK A: 0.90 MV Decel Time: 311.00 E/A: 0.80 E'Lateral: 5.87 E'Medial: 5.11 E/E' Med: 14.10 E/E' Lat: 12.30 PHT: 91.00 MVA PHT: 2.42 Decel [place]: 2.31 Aortic Valve AoV Pk Mina: 2.35 AoV Mn Mina: 1.63 AoV VTI: 0.51 AoV Pk Grad: 22.00 Aov Mn Grad: 12.00 TEDDY Cont.VTI: 1.29 AI Pk Mina: 3.90 AI [place]: 1.67 LVOT LVOT Pk Mina: 0.90 LVOT Mn Mina: 0.65 LVOT VTI: 0.21 LVOT Pk Grad: 3.00 LVOT Mn Grad: 2.00 LVOT Diam: 2.00 LVOT Area: 3.14 Diastolic Function MV Pk E: 0.72 MV Pk A: 0.90 E/A: 0.80 E'Medial: 5.11 E/E' Med: 14.10 E' Laterial: 5.87 E/E' Lat: 12.30 Right Ventricle TAPSE (mm): 2.40 TVS' Mina: 14.10 Tricuspid Valve TR Pk Mina: 2.50 TR Pk Grad: 25.00 RA Press: 3.00 RVSP: 28.00 Great Vessels Aorta Ao Root-2D: 2.90 2.0-3.7 cm Updated in Other Vendor System with Status of Final Donnie Abarca MD electronically signed on 11/04/2021 1:34:56 PM with status of Final
== END ==
LOC: HO.CARD 07:37
PROVIDERS: PCP Internal Medicine; Visit Provider Internal Medicine Cardiovascular Disease
DX: I35.0 Nonrheumatic aortic (valve) stenosis (principal)
CPT/HCPCS: 93306

== ENCOUNTER → 2021-11-07 14:36 | Outpatient (BNVA) | payer MEDICARE, SELFPAY | PROVIDERS: PCP Internal Medicine; Referring Provider Internal Medicine; Visit Provider Internal Medicine Cardiovascular Disease | DX: I35.0 Nonrheumatic aortic (valve) stenosis (principal); I44.7 Left bundle-branch block, unspecified | CPT/HCPCS: 99212 ==

== ENCOUNTER → 2021-11-15 10:09 | Outpatient (BNVA) | payer MEDICARE, SELFPAY | PROVIDERS: PCP Internal Medicine; Visit Provider Physician Assistant | DX: Z01.818 Encounter for other preprocedural examination (principal); K59.09 Other constipation | CPT/HCPCS: 99212 ==

== ENCOUNTER 2021-12-14 14:27 | Outpatient (REF) | payer OTHER, SELFPAY | END 2021-12-14 14:28 | disposition home or self-care (01) | LOC: HO.HOSX 14:27 | PROVIDERS: PCP Internal Medicine; Visit Provider Physician Assistant | DX: G56.02 Carpal tunnel syndrome, left upper limb (principal) | CPT/HCPCS: 99202 ==

== ENCOUNTER → 2022-06-04 15:25 | Outpatient (BNVA) | payer OTHER, SELFPAY | PROVIDERS: PCP Internal Medicine; Visit Provider Physician Assistant | DX: M17.0 Bilateral primary osteoarthritis of knee (principal) | CPT/HCPCS: 20610; 99212; J1020 ==

== ENCOUNTER 2022-06-12 12:56 | Outpatient (REF) | payer OTHER, SELFPAY ==
--- NOTE | ~2022-06-12 | MM_ITS ---
EXAMINATION: BONE DENSITOMETRY CLINICAL INDICATION: Osteoporosis. COMPARISON: Previous BD dated 04/19/2020 and baseline BD dated 07/07/2009. TECHNIQUE: Using a [employer] DXA System (software version: 13.1) manufactured by [employer], dual-energy x-ray absorptiometry was performed of the lumbar spine and left hip. The images are of good technical quality. Summary results are attached. FINDINGS: AP SPINE L1-L4: Current: BMD 1.122 g/cm2, Z-score 1.7, T-score -0.5, normal, 0.1% increase from previous, 1.7% increase from baseline (<5% change is not significant). Prior: BMD 1.121 g/cm2. Baseline: BMD 1.103 g/cm2. LEFT FEMUR, NECK: Current: BMD 0.681 g/cm2, Z-score -0.2, T-score -2.6, osteoporosis. Prior: BMD 0.739 g/cm2. Baseline: BMD 0.854 g/cm2. LEFT FEMUR, TOTAL: Current: BMD 0.784 g/cm2, Z-score 0.4, T-score -1.8, osteopenia, 2.2% decrease from previous, 18.4% decrease from baseline (<5% change is not significant). Prior: BMD 0.802 g/cm2. Baseline: BMD 0.961 g/cm2. IDENTIFIED RISK FACTORS: Menopause, osteoporosis, history of fracture (adult). HISTORY OF FRACTURE: Elbow. MEDICATIONS: Vitamin D. MM/XR DEXA axial skeleton IMPRESSION: 1. DIAGNOSIS: Osteoporosis based on the lowest T-score value of -2.6 in the femoral neck applying World Health Organization criteria. 2. 10-YEAR FRACTURE RISK PREDICTION, FRAX: According to the guidelines, FRAX calculation should only be performed on patients in the osteopenia bone density category. Therefore, FRAX was not performed on this patient. 3. Treatment Recommendations: NOF guidelines recommend consideration for treatment in postmenopausal women and men age 50 and older presenting with the following: -A hip or vertebral (clinical or morphometric) fracture. -T-score less than or equal to -2.5 at the femoral neck or spine after appropriate evaluation to exclude secondary causes. -Low bone mass at the hip or spine and a 10-year fracture probability by FRAX of greater than or equal to 3% for hip fracture or greater than or equal to 20% for major osteoporotic fracture based on the [place] adapted WHO algorithm. 4. Other Recommendations: All treatment decisions require clinical judgment and consideration of individual patient factors, including patient preferences, comorbidities, previous drug use, risk factors not captured in the FRAX model (e.g. frailty, falls, vitamin D deficiency, increased bone turnover, interval significant decline in bone density) and possible under or overestimation of fracture risk by FRAX. Additional medical evaluation for secondary cause of low bone mineral density may be appropriate. FUTURE SCAN RECOMMENDATION: People with diagnosed cases of osteoporosis or at high risk for fracture should have regular bone mineral density tests. For patients eligible for Medicare, routine testing is allowed once every 2 years. The testing frequency can be increased to one year for patients who have rapidly progressing disease, those who are receiving or discontinuing medical therapy to restore bone mass, or have additional risk factors.
== END 2022-06-12 12:57 | disposition home or self-care (01) ==
LOC: HO.MAMMO 12:56
PROVIDERS: PCP Internal Medicine; Visit Provider Internal Medicine
DX: M81.0 Age-related osteoporosis without current pathological fracture (principal)
CPT/HCPCS: 77080

== ENCOUNTER 2022-07-07 09:59 | Outpatient (REF) | payer OTHER, SELFPAY ==
--- NOTE | ~2022-07-07 | MM_ITS ---
EXAMINATION: MM SCREENING DIGITAL BREAST TOMOSYNTHESIS, BILATERAL CLINICAL INFORMATION: Screening. Asymptomatic. The lifetime risk of breast cancer based on the Tyrer-Cuzick Model is under 2%. COMPARISON: Mammography: 07/01/2021, 05/05/2020, 02/14/2019 TECHNIQUE: Digital breast tomosynthesis is performed in both the craniocaudal and mediolateral oblique views along with computer-aided detection (CAD). Synthesized 2D images are generated from the tomosynthesis. FINDINGS: The breasts are almost entirely fatty (ACR BI-RADS breast composition Category a). Background stromal markings are normal, similar to prior studies. There is no developing density or interval mass or architectural abnormality. Again, there are scattered bilateral predominantly vascular calcifications. The axilla and skin contours are unremarkable. No significant changes. MM/MM tomosynthesis screening BI IMPRESSION: No mammographic evidence of malignancy. ASSESSMENT: BI-RADS 1: Negative RECOMMENDATION: Routine annual mammography screening. This patient's information was entered into a reminder system with a target due date for their next mammogram.
== END 2022-07-07 10:00 | disposition home or self-care (01) ==
LOC: HO.MAMMO 09:59
PROVIDERS: PCP Internal Medicine; Visit Provider Internal Medicine
DX: Z12.31 Encounter for screening mammogram for malignant neoplasm of breast (principal)
CPT/HCPCS: 77063; 77067

== ENCOUNTER 2022-07-07 10:54 | Outpatient (REF) | payer OTHER, SELFPAY ==
[2022-07-07 11:16] LABS: MANUAL DIFF FLAG NO
[2022-07-07 11:24] LABS: Basophils Percent Auto 0.5 % (0-2); Eosinophils Absolute Auto 0.2 X10*3/uL (0.0-0.4); Eosinophils Percent Auto 4.2 % (0-4); Hematocrit 40.2 % (37.0-47.0); Hemoglobin 12.9 g/dl (12.0-16.0); Imm Gran Abs Auto 0.02 X10*3/uL (0.00-0.03); Imm Gran Pct Auto 0.4 % (0.0-0.4); Lymphocytes Absolute Auto 1.2 X10*3/uL (1.2-4.9); Lymphocytes Percent Auto 21.4 % (20-40); Mean Corpuscular HGB Conc 32.1 g/dl (31.0-35.0); Mean Corpuscular Hemoglobin 29.3 pg (27.0-33.0); Mean Corpuscular Volume 91.4 fL (80.0-98.0); Mean Platelet Volume 10.9 fL (9.4-12.3); Monocytes Absolute Auto 0.5 X10*3/uL (0.1-1.2); Monocytes Percent Auto 8.2 % (2-11); Neutrophils Absolute Auto 3.6 x10*3/uL (2.0-8.3); Neutrophils Percent Auto 65.3 % (45-73); Platelet Count 227 X10*3/uL (160-400); Red Cell Distribution Width 12.8 % (11.0-16.0); White Blood Count 5.5 X10*3/uL (4.8-10.8)
[2022-07-07 11:26] LABS: Appearance Urine Clear; Color Urine Yellow; Glucose Urine UA Negative (Negative); Leukocyte Esterase Urine Moderate (2+) (Negative); Nitrite Urine Negative (Negative); PH 8.5 (5.0-9.0); Specific Gravity - Urine 1.015 (1.005-1.025); UMIC TRIGGER UA YES; Urine Blood Negative (Negative); Urine Ketones Negative (Negative); Urine Protein Negative (Neg-Trace)
[2022-07-07 11:32] LABS: Estimated Average Glucose 117 mg/dL; Hemoglobin A1c % 5.7 %
[2022-07-07 11:33] LABS: Bacteria Urine None Seen (None Seen); Hyaline Casts Urine 0-2 /LPF (0-2); RBC Urine 0-2 /HPF (0-2)
[2022-07-07 11:45] LABS: B Type Natriuretic Peptide 18 pg/mL (<100)
[2022-07-07 12:01] LABS: Alanine Aminotransferase 6 U/L (0-31); Albumin Level 4.4 g/dL (3.5-5.0); Alkaline Phosphatase 92 U/L (39-117); Anion Gap 13 (12-20); Aspartate Amino Transferase 15 U/L (5-31); Bilirubin Total 0.4 mg/dL (0.0-1.0); Blood Urea Nitrogen 14 mg/dL (9-16); Calcium 9.6 mg/dL (8.4-10.2); Carbon Dioxide 31 mmol/L (22-29); Chloride 100 mmol/L (96-108); Cholesterol 210 mg/dL; Estimated Glomerular Filt Rate > 60; Glucose Random 95 mg/dL (60-115); HDL Cholesterol 73 mg/dL; LDL Cholesterol Calculated 116 mg/dl; Potassium 4.5 mmol/L (3.3-5.1); Sodium 139 mmol/L (135-145); Total Protein 7.8 g/dL (6.5-8.0); Triglycerides 108 mg/dL
[2022-07-07 12:26] LABS: Free T4 (Free Thyroxine) 0.89 ng/dL (0.71-1.85)
[2022-07-07 12:38] LABS: Folate 11.8 ng/mL (> or = 4.0); Vitamin B12 414 pg/mL (200-900)
== END 2022-07-07 10:55 | disposition home or self-care (01) ==
LOC: HO.MAMMO 10:54
PROVIDERS: Visit Provider Internal Medicine
DX: E78.00 Pure hypercholesterolemia, unspecified (principal); I25.5 Ischemic cardiomyopathy; R73.02 Impaired glucose tolerance (oral)
CPT/HCPCS: 36415; 80053; 80061; 81001; 82306; 82607; 82746; 83036; 83880; 84439; 85025

== ENCOUNTER → 2022-07-24 15:03 | Outpatient (BNVA) | payer OTHER, SELFPAY | PROVIDERS: PCP Internal Medicine; Referring Provider Internal Medicine; Visit Provider Internal Medicine Cardiovascular Disease | DX: I35.0 Nonrheumatic aortic (valve) stenosis (principal); I44.7 Left bundle-branch block, unspecified; I10 Essential (primary) hypertension | CPT/HCPCS: 93005; 99212 ==

== ENCOUNTER → 2022-09-21 15:34 | Outpatient (BNVA) | payer OTHER, SELFPAY | PROVIDERS: PCP Internal Medicine; Visit Provider Physician Assistant | DX: M17.0 Bilateral primary osteoarthritis of knee (principal) | CPT/HCPCS: 20610; 99212; J1040 ==

== ENCOUNTER → 2023-01-08 10:59 | Outpatient (REF) | payer OTHER, SELFPAY ==
--- NOTE | 2023-01-08 11:03 | CA_ITS ---
Transthoracic Echocardiogram Patient (Last, First, Middle): Niya Noriega, Gender: Female Date of : 1945 Age: 77 Procedure Date: 01/08/2023 Procedure Type: Transthoracic Echocardiogram Location: OP Height: 152.4 cm Weight: 65.77 kg BSA: 1.63 m2 Heart Rate: 65 bpm BP: 120 / 76 mmHg Center Consultant: MARCOS Referring MD: Js Fried MD Compounding And Finishing Supervisor: Js Fried MD Symptoms: I35.0 - Nonrheumatic aortic (valve) stenosis Study Quality: Adequate ECG Rhythm: Sinus Conclusions: - 1. Low normal LV ejection fraction of 50-55% with impaired relaxation filling pattern 2. Moderate aortic stenosis 3. Normal RV systolic pressure 4. No gross pericardial effusion Findings Left Ventricle Normal left ventricular cavity size. There is normal left ventricular wall thickness. The left ventricular systolic function is low normal. The visually estimated ejection fraction is between 50-55%. Spectral Doppler is indicative of an impaired relaxation filling pattern. E/E prime ratio is between 8 and 15 consistent with indeterminate filling pressures. Peak GLS is -16.4%, which is mildly reduced. Right Ventricle Normal right ventricular cavity size and systolic function. Atria The left atrium is likely dilated. There is a mobile atrial septum noted. Interatrial shunt cannot be excluded. The right atrium is normal in size. Aortic Valve There is mild calcification of the aortic valve. There is mild thickening of the aortic valve. There is moderate aortic valve stenosis. The mean gradient is 16 mmHg. There is mild aortic valve regurgitation. although the valve area is calculated to be in the severe range, the gradient and the dimensionless index are most suggestive of moderate aortic stenosis. Clinical correlation suggested. Dimensionless index is 0.3 Mitral Valve There is mild anterior and moderate posterior mitral leaflet thickening. There is moderate mitral annular calcification. There is trace mitral valve regurgitation. There is no mitral valve stenosis. Pulmonic Valve The pulmonic valve is likely normal. Tricuspid Valve Normal tricuspid valve structure. There is mild tricuspid valve regurgitation. The right ventricular systolic pressure is normal. Normal right atrial pressure. There is no evidence of pulmonary hypertension. Great Vessels All visible segments of the aorta are normal in size. The pulmonary artery was not well visualized. Venous The inferior vena cava is normal in size and collapses greater than 50% with inspiration. Pericardium/Pleural There is no evidence of pericardial effusion. Prior Study Comparison Changes noted compared to prior study dated: 11/02/2021. LV systolic function is marginally reduced and aortic stenosis is moderate range Measurements 2D Linear Measurements IVSd: 0.79 0.6-0.9/0.6-1.0 cm LVIDd: 4.64 3.9-5.3/4.2-5.9 cm LVIDd Index: 2.85 2.4-3.2/2.2-3.1 cm/m2 LVIDs: 3.45 2.0-3.6 cm LVPWd: 0.91 0.7-1.1 cm LA Diam: 2.20 2.7-3.8/3.0-4.0 cm LAIDs Index: 1.35 1.5-2.3 cm/m2 LV Mass: 161.02 67-162/88-224 g LV Mass Index: 98.78 43-95/49-115 g/m2 LVOT Diam: 1.90 3.0+(-)1.3 cm 2D Systolic Function EF 4C: 41.00 >55% EF 2C: 58.30 >55% EF BiP: 50.80 >55% Mitral Valve MV Pk E: 0.59 MV PK A: 0.98 MV Decel Time: 322.00 E/A: 0.60 E'Lateral: 5.11 E'Medial: 4.03 E/E' Med: 14.60 E/E' Lat: 11.50 PHT: 94.00 MVA PHT: 2.34 Decel [place]: 1.83 Aortic Valve AoV Pk Mina: 2.74 AoV Mn Mina: 1.87 AoV VTI: 0.64 AoV Pk Grad: 30.00 Aov Mn Grad: 16.00 TEDDY Cont.VTI: 0.86 AI Pk Mina: 4.51 AI VTI: 2.37 AI [place]: 2.52 AI Alias Mina: 0.39 AI RV - PISA: 12.00 ERO - PISA: 5.00 LVOT LVOT Pk Mina: 0.89 LVOT Mn Mina: 0.62 LVOT VTI: 0.19 LVOT Pk Grad: 3.00 LVOT Mn Grad: 2.00 LVOT Diam: 1.90 LVOT Area: 2.84 Diastolic Function MV Pk E: 0.59 MV Pk A: 0.98 E/A: 0.60 E'Medial: 4.03 E/E' Med: 14.60 E' Laterial: 5.11 E/E' Lat: 11.50 Right Ventricle TAPSE (mm): 24.30 TVS' Mina: 13.40 Tricuspid Valve TR Pk Mina: 2.47 TR Pk Grad: 24.00 RA Press: 3.00 RVSP: 27.00 Great Vessels Aorta Sinus of Valsalva: 3.02 2.0-3.5 cm Ao Asc: 3.20 2.1-3.4 cm Updated in Other Vendor System with Status of Final Js Fried MD electronically signed on 01/09/2023 4:36:03 PM with status of Final
== END ==
LOC: HO.CARD 10:59
PROVIDERS: PCP Internal Medicine; Visit Provider Internal Medicine Cardiovascular Disease
DX: I35.0 Nonrheumatic aortic (valve) stenosis (principal)
CPT/HCPCS: 93306; 93356

== ENCOUNTER → 2023-01-31 12:09 | Outpatient (BNVA) | payer OTHER, SELFPAY | PROVIDERS: PCP Internal Medicine; Referring Provider Internal Medicine; Visit Provider Internal Medicine Cardiovascular Disease | DX: I35.0 Nonrheumatic aortic (valve) stenosis (principal); I25.5 Ischemic cardiomyopathy; Z79.899 Other long term (current) drug therapy | CPT/HCPCS: 99212 ==

== ENCOUNTER 2023-03-21 09:28 | Outpatient (AMB) | payer OTHER, SELFPAY ==
[2023-03-21 09:39] VITALS: BMI 20.8
--- NOTE | 2023-03-21 09:39 | MHC.OFFVIS ---
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 Patient reports her injection lasted her up to this point and she would like to repeat. Allergies No Known Allergies Allergy (Verified 03/21/23 09:39) HPI OV - bilateral knee OA, last inj 10/01/22 HPI Details 77-year-old female, who is Welsh speaking, presents in the office today for a follow up of bilateral knee pain. The patient had her last cortisone injection on 09/21/2022. She reports the injection gave her relief until recently. She would like to repeat the cortisone injection in the bilateral knees while in the office today. [facility] Medical History Anxiety Aortic stenosis Cataract Elbow fracture, left HTN (hypertension) Hypercholesterolemia Hyperlipidemia Impaired glucose tolerance Injury of left elbow LBBB (left bundle branch block) Left wrist sprain Osteoarthritis Vitamin D deficiency Surgical History History of cataract surgery History of section Family History Father Cancer Mother Hypertension Brother No problems noted. Sister No problems noted. Son No problems noted. Daughter No problems noted. Social History Housing: Apartment Alcohol intake: never Patient Tobacco Use Status: Never used Tobacco e-Cigarette/Vaping Use: Never Used Second Hand Smoke Exposure: No Current occupational status: disabled Current occupation: rt handed Cognitive needs: No Hearing needs: No Vision needs: No Review of Systems Const All systems reviewed & are unremarkable except as noted in HPI and below Physical Exam Vital Signs: BMI result Body Mass Index 20.8 Const General: cooperative and no acute distress Orientation/consciousness: patient oriented x3 Resp Effort & Inspection: normal respiratory effort and able to speak in complete sentences Cardio Peripheral pulses: Peripheral pulses 2+ throughout Neuro General: patient oriented x3 Extrem Other: Bilateral knees skin intact, no erythema or joint effusion. Tenderness along the medial joint line. Creptius felt with ROM. Negative steinmans. No ligamentous laxity. NVI. Psych Mental Status: mental status grossly normal Office Procedures Joint Injection/Drain Joint Injection/Drain Primary Site: right knee Secondary Site: left knee Prep: site was prepped using aseptic technique, ethochloride spray was applied and injection warnings given Injected: 80 mg of, DepoMedrol, with 8 mL of (2% plain lido ) and in the joint Approach Used: anterolateral Procedure: The patient tolerated the procedure well, but had some pain with the injection and there was some relief with the local anesthesia Coding - Large joint Procedure code (CPT) selection complete Assessment & Plan Assessment & Plan (1) Osteoarthritis of knees, bilateral: Code(s): M17.0 - Bilateral primary osteoarthritis of knee Plan Ms. Noriega is a 77-year-old female, who is rwandan speaking, presents in the office today with her daughter for a follow up of bilateral knee pain. The patient had her last cortisone injection on 09/21/22. The patient reports the injection gave her great relief. She would like to repeat the bilateral knee injections. The patient was offered a cortisone injection in the bilateral knees. The patient was explained the risk, benefits, and alternatives to receiving this injection. After receiving consent for the injection, the patient had the procedure done while in office today. The patient tolerated the procedure well with no complications. Follow up will be PRN, or sooner if needed. Orders: Orders XR knee LT 2V Today M25.569 - Pain in unspecified knee XR knee RT 2V Today M25.569 - Pain in unspecified knee XR knee standing BI Today M25.569 - Pain in unspecified knee Patient Instructions: Scribed for Yessi Carroll PA-C by Nurys Novak biomedical service engineer, on 03/21/2023 at 9:30 am, EST. Your attestation Coding Level of Care Code Est Pt Level 3 (05936) Diagnoses Osteoarthritis of knees, bilateral M17.0 CPT Codes Coding - Large joint: 84026 - Large joint ([id number])
== END 2023-03-21 10:01 | disposition home or self-care (01) ==
PROVIDERS: PCP Internal Medicine; Visit Provider Physician Assistant
DX: M17.0 Bilateral primary osteoarthritis of knee (principal)
CPT/HCPCS: 20610; 99213

== ENCOUNTER 2023-03-21 12:46 | Outpatient (REF) | payer OTHER, SELFPAY ==
--- NOTE | ~2023-03-21 | XR_ITS ---
EXAMINATION: XR KNEE, BILATERAL CLINICAL INFORMATION: Bilateral knee pain. COMPARISON: Left knee 08/29/2021, bilateral knees and right knee 04/20/2021. TECHNIQUE: Single standing view of both knees with 2 additional views each knee. FINDINGS: Severe tricompartmental degenerative changes are present in each knee. Most marked narrowing is present in the medial compartments and patellofemoral compartments. Chondrocalcinosis is present. Small bilateral joint effusions are seen. No fractures are present. Arterial calcification is noted. When comparison is made to the 04/20/2021 study, there has been no interval change. XR/XR knee RT 2V IMPRESSION: Severe tricompartmental degenerative changes with no acute finding. Findings are unchanged when compared to 04/20/2021.
--- NOTE | ~2023-03-21 | XR_ITS ---
EXAMINATION: XR KNEE, BILATERAL CLINICAL INFORMATION: Bilateral knee pain. COMPARISON: Left knee 08/29/2021, bilateral knees and right knee 04/20/2021. TECHNIQUE: Single standing view of both knees with 2 additional views each knee. FINDINGS: Severe tricompartmental degenerative changes are present in each knee. Most marked narrowing is present in the medial compartments and patellofemoral compartments. Chondrocalcinosis is present. Small bilateral joint effusions are seen. No fractures are present. Arterial calcification is noted. When comparison is made to the 04/20/2021 study, there has been no interval change. XR/XR knee standing BI IMPRESSION: Severe tricompartmental degenerative changes with no acute finding. Findings are unchanged when compared to 04/20/2021.
--- NOTE | ~2023-03-21 | XR_ITS ---
EXAMINATION: XR KNEE, BILATERAL CLINICAL INFORMATION: Bilateral knee pain. COMPARISON: Left knee 08/29/2021, bilateral knees and right knee 04/20/2021. TECHNIQUE: Single standing view of both knees with 2 additional views each knee. FINDINGS: Severe tricompartmental degenerative changes are present in each knee. Most marked narrowing is present in the medial compartments and patellofemoral compartments. Chondrocalcinosis is present. Small bilateral joint effusions are seen. No fractures are present. Arterial calcification is noted. When comparison is made to the 04/20/2021 study, there has been no interval change. XR/XR knee LT 2V IMPRESSION: Severe tricompartmental degenerative changes with no acute finding. Findings are unchanged when compared to 04/20/2021.
== END 2023-03-21 12:47 | disposition home or self-care (01) ==
LOC: HO.HOSX 12:46
PROVIDERS: Visit Provider Physician Assistant
DX: M17.0 Bilateral primary osteoarthritis of knee (principal)
CPT/HCPCS: 20610; 73560; 73565; 99212; J1040

== ENCOUNTER 2023-06-26 08:24 | Outpatient (AMB) | payer OTHER, SELFPAY ==
--- NOTE | 2023-06-26 08:34 | MHC.PC.OV ---
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 Required: No Accompanied by: Daughter Allergies No Known Allergies Allergy (Verified 06/26/23 08:36) Medication List - Last Reconciled 06/26/23 by Ted Diallo MD alprazolam 0.25 mg PO DAILY PRN ascorbate calcium (vitamin C) 500 mg PO DAILY aspirin 81 mg PO DAILY 90 days atorvastatin 20 mg PO DAILY carvedilol 25 mg PO BID 90 days cholecalciferol (vitamin D3) 50 mcg PO DAILY citalopram 10 mg PO DAILY cyanocobalamin (vitamin B-12) 1,000 mcg PO DAILY donepezil (Aricept) 5 mg PO BEDTIME [ENSURE As directed] furosemide 20 mg PO DAILY ibuprofen 800 mg PO BID losartan 100 mg PO DAILY 90 days [ROLLATOR As directed] [toilet seat 1 ea miscellaneous .each] Tobacco use date assessed: 06/26/23 Fall risk assessment: No Falls in past year Last assessed Fall Risk: 06/26/23 Dental Screening Dental Screen Date: 06/26/23 Did you have a dental visit in the last 12 months?: No Did you have a dental problem in the last 6 months where you did not have access to dental care?: No Was dental information given to patient?: Patient has dentist HPI Discuss medical issue's HPI Details 78-year-old female with ischemic cardiomyopathy hypercholesterolemia hypertension impaired glucose tolerance aortic stenosis left carpal tunnel syndrome coming in for follow-up last seen in May 2022. Workup was requested bone density done June 2022. Review of the notes March was seen by orthopedics for bilateral knee osteoarthritis last cortisone shot was September 2022 x-ray did show severe arthritis. Cardiology was seen in January has moderate aortic stenosis December 2021 1.29 with low left ventricular ejection fraction 50-55% with impaired relaxation denies any cardiac symptoms. More recent echo January 2023Low normal LV ejection fraction of 50-55% with impaired relaxation filling pattern 2. Moderate aortic stenosis 0.86 3. Normal RV systolic pressure 4. No gross pericardial effusion PFSH Medical History (Updated 10/18/23 @ 09:01 by Ted Diallo MD) Left wrist sprain Elbow fracture, left Injury of left elbow Aortic stenosis LBBB (left bundle branch block) Osteoarthritis Anxiety Vitamin D deficiency Impaired glucose tolerance Hypercholesterolemia Cataract Hyperlipidemia HTN (hypertension) Surgical History History of cataract surgery History of section Family History (Updated 06/26/23 @ 08:38 by DE Ellison) Father Cancer Mother Hypertension Brother No problems noted. Sister No problems noted. Son No problems noted. Daughter No problems noted. Social History Housing: Apartment Alcohol intake: never Patient Tobacco Use Status: Never used Tobacco e-Cigarette/Vaping Use: Never Used Second Hand Smoke Exposure: No service: No Current occupational status: disabled Current occupation: rt handed Cognitive needs: Yes Hearing needs: No Vision needs: No Questionnaire PHQ-9 Over the last 2 weeks, how often have you been bothered by any of the following problems? 1. Little interest or pleasure in doing things: several days 2. Feeling down, depressed, or hopeless: several days 3. Trouble falling or staying asleep, or sleeping too much: more than half the days 4. Feeling tired or having little energy: several days 5. Poor appetite or overeating: more than half the days 6. Feeling bad about yourself - or that you are a failure or have let yourself or your family down: not at all 7. Trouble concentrating on things, such as reading the newspaper or watching television: not at all 8. Moving or speaking so slowly that other people could have noticed. Or the opposite - being so fidgety or restless that you have been moving around a lot more than usual: not at all 9. Thoughts that you would be better off or of hurting yourself in some way: not at all Total score: 7 Depression Screening Interpretation: Negative Depression Screening Done: Yes Source: Developed by Drs. Latrell Mendes, Breonna Perales, Blane Alexis and colleagues, with an educational charissa from [employer]. Thrive Questionnaire Date Thrive assessed: 06/26/23 I am a: Patient What is your living situation today?: I have a steady place to live Within the past 12 months, did the food you bought not last and you didn't have the money to get more?: Never true Within the past 12 months, did you worry whether your food would run out before you got money to buy more?: Never true Do you have trouble paying for medicines?: No Do you have trouble getting transportation to medical appointments?: No Do you have trouble paying your heating and electricity bill?: No Do you have trouble taking care of your child, family member or friend?: No Do you have trouble with day-to-day activities such as bathing, preparing meals, shopping, managing finances, etc.?: Yes Are you currently unemployed and looking for a job?: No Are you interested in more education?: No Please select the resources that you would like help with: None Currently or been in a relationship where the following occur: no concerns reported AUDIT C Alcohol Use Questionnaire (AUDIT-C) 1. How often do you have a drink containing alcohol?: Never Total Score: 0 MARY-7 AMB Questionnaire MARY-7 Date MARY - 7 assessed: 06/26/23 Feeling nervous, anxious, or on edge: 1 = Several days Not being able to stop or control worryin = Not at all Worrying too much about different things: 0 = Not at all Trouble relaxin = Not at all Being so restless that it is hard to sit still: 0 = Not at all Becoming easily annoyed or irritable: 0 = Not at all Feeling afraid as if something awful might happen: 0 = Not at all Total MARY-7 score (0-4 normal; 5-9 mild; 10-14 moderate; 15-21 severe): 1 Source: Developed by Drs. Latrell Mendes, Breonna Perales, Blane Alexis and colleagues, with an educational charissa from [employer]. Physical exam (Primary Care) Vital Signs: Last Vital Signs Pulse 81 06/26/23 08:35 BP 142/70 H 06/26/23 08:35 Pulse Ox 98 06/26/23 08:35 Oxygen Delivery Method Room Air 06/26/23 08:35 BMI result Body Mass Index 20.1 Tobacco/Smoking Status: Tobacco use Status Tobacco use date assessed 06/26/23 06/26/23 08:42 Patient Tobacco Use Status Never used Tobacco 06/26/23 08:42 e-Cigarette/Vaping Use Never Used 06/26/23 08:42 PHQ-9: PHQ-9 Score PHQ-9: Total score 7 06/26/23 09:02 Depression Screening Interpretation: Negative Thrive Assessment: Date of Thrive Assessment Date Thrive assessed 06/26/23 06/26/23 08:42 Currently or been in a relationship where the following occur: no concerns reported Const General: alert; No acute distress Eyes Conjunctivae: conjunctivae normal Resp Auscultation: clear to auscultation bilaterally Cardio Rate: regular rate Rhythm: regular rhythm GI Inspection: Yes normal to inspection Extrem General: Yes normal to inspection and No edema Office Procedures Flu Questionnaire Does the patient have a severe egg allergy?: No Immunizations flu vacc [id number] 6mos up(PF) 60 mcg(15 mcgx4)/0.5 mL IM syringe Performing Provider: Ted Diallo MD [facility] Documented (not given) by: DE Ellison on 06/26/23 09:14 Reason Not Given: Patient Refused Assessment and Plan Assessment & Plan (1) Ischemic cardiomyopathy: Code(s): I25.5 - Ischemic cardiomyopathy Plan: Continue with diuretic and blood pressure medication (2) Impaired glucose tolerance: Code(s): R73.02 - Impaired glucose tolerance (oral) Plan: Decrease the amount of carbohydrate intake, pasta, bread, rice and potatoes are all sugar and that is aside from all the sweet stuff, remember that fruits are good but they are Sweet also. (3) HTN (hypertension): Code(s): I10 - Essential (primary) hypertension Qualifiers: Hypertension type: essential hypertension Qualified Code(s): I10 - Essential (primary) hypertension Plan: Continue with blood pressure medication. Decrease salt intake and exercise patient on carvedilol 25 mg twice a day losartan 100 mg once a day on diuretic admits not sure if BP med is taken (4) Aortic stenosis: Comment: December 2021 1.29 cm 01/2023 moderate (but measured 0.86) Code(s): I35.0 - Nonrheumatic aortic (valve) stenosis Qualifiers: Cardiac valve disease etiology: nonrheumatic Qualified Code(s): I35.0 - Nonrheumatic aortic (valve) stenosis Plan: Patient is being followed up by Cardiology (5) Osteoarthritis of knees, bilateral: Code(s): M17.0 - Bilateral primary osteoarthritis of knee Plan: Patient follows up with Orthopedics and has had injections Orders: Orders Thyroid Stimulating Hormone Today E78.00 - Pure hypercholesterolemia, unspecified Vitamin B12 and Folate Today E78.00 - Pure hypercholesterolemia, unspecified Lipid Panel Today E78.00 - Pure hypercholesterolemia, unspecified B Type Natriuretic Peptide Today E78.00 - Pure hypercholesterolemia, unspecified Complete Blood Count Auto Diff Today E78.00 - Pure hypercholesterolemia, unspecified Comprehensive Met. Panel Today E78.00 - Pure hypercholesterolemia, unspecified Free T4 (Free Thyroxine) Today E78.00 - Pure hypercholesterolemia, unspecified Vitamin D 25-OH Total Today E78.00 - Pure hypercholesterolemia, unspecified Influenza [id number] Immunization Today Z23 - Encounter for immunization Medications: New blood pressure monitor (Blood Pressure Kit) As directed 1 ea 0RF I10 - Essential (primary) hypertension Coding Level of Care Code Est Pt Level 4 (80128) Diagnoses Ischemic cardiomyopathy I25.5 Impaired glucose tolerance R73.02 Essential hypertension I10 Hypertension type: essential hypertension Nonrheumatic aortic valve stenosis I35.0 Cardiac valve disease etiology: nonrheumatic Osteoarthritis of knees, bilateral M17.0 Additional Codes PHQ-9 - 05980 - PHQ-9 Billing: ([id number])
[2023-06-26 08:35] VITALS: BP 142/70; PULSE 81; O2SAT 98; BMI 20.1
== END 2023-06-26 09:14 | disposition home or self-care (01) ==
PROVIDERS: PCP Internal Medicine; Visit Provider Internal Medicine
DX: I25.5 Ischemic cardiomyopathy (principal); R73.02 Impaired glucose tolerance (oral); I10 Essential (primary) hypertension; I35.0 Nonrheumatic aortic (valve) stenosis; M17.0 Bilateral primary osteoarthritis of knee
CPT/HCPCS: 99214

== ENCOUNTER 2023-10-29 08:12 | Outpatient (AMB) | payer OTHER, SELFPAY ==
--- NOTE | 2023-10-29 08:14 | MHC.OFFVIS ---
Intake Intake Visit Reasons: OV-bilateral knee OA, last inj 03/21/23 Intake Note: Niya is a 78 year old female who presents today for a follow up of her bilateral knee OA, last injection 03/21/23. Patient reports her last injection gave her about 3 + months of relief. She states that she would like to repeat. . Allergies No Known Allergies Allergy (Verified 10/29/23 08:17) HPI OV-bilateral knee OA, last inj 03/21/23 HPI Details 78-year-old female, who is Brazilian speaking, presents in the office today for a follow up of bilateral knee pain. I last saw the patient in the office on 03/21/2023 where she received a bilateral knee cortisone injections. While in the office today the patient reports her last injection gave her more than 3 months of relief. She would like to repeat the injection today. [facility] Medical History (Updated 10/29/23 @ 08:20 by Nurys Novak) Left wrist sprain Elbow fracture, left Injury of left elbow Aortic stenosis LBBB (left bundle branch block) Osteoarthritis Anxiety Vitamin D deficiency Impaired glucose tolerance Hypercholesterolemia Cataract Hyperlipidemia HTN (hypertension) Surgical History History of cataract surgery History of section Family History (Updated 06/26/23 @ 08:38 by DE Ellison) Father Cancer Mother Hypertension Brother No problems noted. Sister No problems noted. Son No problems noted. Daughter No problems noted. Social History Housing: Apartment Alcohol intake: never Patient Tobacco Use Status: Never used Tobacco e-Cigarette/Vaping Use: Never Used Second Hand Smoke Exposure: No service: No Current occupational status: disabled Current occupation: rt handed Cognitive needs: Yes Hearing needs: No Vision needs: No Review of Systems Const All systems reviewed & are unremarkable except as noted in HPI and below Physical Exam Const General: cooperative and no acute distress Orientation/consciousness: patient oriented x3 Resp Effort & Inspection: normal respiratory effort and able to speak in complete sentences Cardio Peripheral pulses: Peripheral pulses 2+ throughout Neuro General: patient oriented x3 Extrem Other: Bilateral knees skin intact, no erythema or joint effusion. Tenderness along the medial joint line. Creptius felt with ROM. Negative steinmans. No ligamentous laxity. NVI. Psych Mental Status: mental status grossly normal Office Procedures Joint Injection/Drain Joint Injection/Drain Primary Site: right knee Secondary Site: left knee Injected: 80 mg of, DepoMedrol, with 8 mL of (2% plain lido ) and in the joint Approach Used: anterolateral Procedure: The patient tolerated the procedure well, but had some pain with the injection and there was some relief with the local anesthesia Coding - Large joint Procedure code (CPT) selection complete Assessment & Plan Assessment & Plan (1) Osteoarthritis of knees, bilateral: Code(s): M17.0 - Bilateral primary osteoarthritis of knee Qualifiers: Osteoarthritis type: unspecified Qualified Code(s): M17.0 - Bilateral primary osteoarthritis of knee Plan Ms. Noriega is an 78-year-old female, who is Brazilian speaking, presents in the office today for a follow up of bilateral knee pain. I last saw the patient in the office on 03/21/2023 where she received a bilateral knee cortisone injections. While in the office today the patient reports her last injection gave her more than 3 months of relief. She would like to repeat the injection today. The patient was offered a cortisone injection in the bilateral knees with 80 mg of DepoMedrol. The patient was explained the risk, benefits, and alternatives to receiving this injection. After receiving consent for the injection, the patient had the procedure done while in office today. The patient tolerated the procedure well with no complications. Follow up will be PRN, or sooner if needed. Patient Instructions: Scribed by Nurys Novak medical massage therapist, for Yessi Carroll PA-C on 10/29/2023 at 8:14 am, EST. Coding Level of Care Code Est Pt Level 3 (77215) Diagnoses Osteoarthritis of both knees, unspecified osteoarthritis type M17.0 Osteoarthritis type: unspecified CPT Codes Coding - Large joint: 56179 - Large joint ([id number])
== END 2023-10-29 08:39 | disposition home or self-care (01) ==
PROVIDERS: PCP Internal Medicine; Visit Provider Physician Assistant
DX: M17.0 Bilateral primary osteoarthritis of knee (principal)
CPT/HCPCS: 20610; 99213

== ENCOUNTER → 2023-10-29 08:12 | Outpatient (BNVA) | payer OTHER, SELFPAY | PROVIDERS: PCP Internal Medicine; Visit Provider Physician Assistant | DX: M17.0 Bilateral primary osteoarthritis of knee (principal) | CPT/HCPCS: 20610; 99212; J1040 ==

== ENCOUNTER 2023-11-02 08:04 | Outpatient (REF) | payer OTHER, SELFPAY ==
[2023-11-02 08:18] LABS: MANUAL DIFF FLAG NO
[2023-11-02 08:19] LABS: Basophils Percent Auto 0.6 % (0-2); Eosinophils Absolute Auto 0.1 X10*3/uL (0.0-0.4); Eosinophils Percent Auto 1.5 % (0-4); Hematocrit 40.8 % (37.0-47.0); Hemoglobin 13.3 g/dl (12.0-16.0); Imm Gran Abs Auto 0.03 X10*3/uL (0.00-0.03); Imm Gran Pct Auto 0.4 % (0.0-0.4); Lymphocytes Absolute Auto 1.2 X10*3/uL (1.2-4.9); Lymphocytes Percent Auto 18.6 % (20-40); Mean Corpuscular HGB Conc 32.6 g/dl (31.0-35.0); Mean Corpuscular Hemoglobin 29.4 pg (27.0-33.0); Mean Corpuscular Volume 90.1 fL (80.0-98.0); Mean Platelet Volume 10.9 fL (9.4-12.3); Monocytes Absolute Auto 0.6 X10*3/uL (0.1-1.2); Neutrophils Absolute Auto 4.7 x10*3/uL (2.0-8.3); Neutrophils Percent Auto 69.9 % (45-73); Platelet Count 218 X10*3/uL (160-400); Red Blood Count 4.53 X10*6/uL (4.20-5.50); White Blood Count 6.7 X10*3/uL (4.8-10.8)
[2023-11-02 09:10] LABS: B Type Natriuretic Peptide 20 pg/mL (<100)
[2023-11-02 09:16] LABS: Alanine Aminotransferase 6 U/L (0-31); Albumin Level 4.5 g/dL (3.5-5.0); Alkaline Phosphatase 94 U/L (39-117); Anion Gap 13 (12-20); Aspartate Amino Transferase 12 U/L (5-31); Bilirubin Total 0.6 mg/dL (0.0-1.0); Blood Urea Nitrogen 22 mg/dL (9-16); Calcium 9.7 mg/dL (8.4-10.2); Carbon Dioxide 30 mmol/L (22-29); Chloride 100 mmol/L (96-108); Cholesterol 228 mg/dL (<200); Estimated Glomerular Filt Rate > 60; Glucose Random 102 mg/dL (60-115); HDL Cholesterol 88 mg/dL (>40); LDL Cholesterol Calculated 123 mg/dL (<100); Potassium 4.8 mmol/L (3.3-5.1); Sodium 138 mmol/L (135-145); Total Protein 8.1 g/dL (6.5-8.0); Triglycerides 89 mg/dL (<150)
[2023-11-02 09:31] LABS: Vitamin D 25-OH Total 21.3 ng/mL (>30)
[2023-11-02 09:43] LABS: Folate 10.4 ng/mL (> or = 4.0); Vitamin B12 338 pg/mL (200-900)
== END 2023-11-02 08:05 | disposition home or self-care (01) ==
LOC: HO.LAB 08:04
PROVIDERS: PCP Internal Medicine; Visit Provider Internal Medicine
DX: E78.00 Pure hypercholesterolemia, unspecified (principal)
CPT/HCPCS: 36415; 80053; 80061; 82306; 82607; 82746; 83880; 84439; 84443; 85025

== ENCOUNTER 2023-11-04 16:26 | Outpatient (AMB) | payer OTHER, SELFPAY ==
[2023-11-04 17:00] VITALS: BP 148/82; PULSE 90; O2SAT 95; BMI 19.6
--- NOTE | 2023-11-04 17:00 | MHC.PC.OV ---
Vital Signs 11/04/23 17:00 Height 5 ft 2 in Weight 107 lb 0.8 oz BMI 19.6 BP 148/82 H Blood Pressure Location Lt brachial Position Sitting Pulse 90 Pulse Source Pulse Oximeter Pulse Oximetry (%) 95 Oxygen Delivery Method Room Air Intake Visit Reasons: 6 Week F/U (rescheduled) Global Marketing Operations Manager Required: No Allergies No Known Allergies Allergy (Verified 11/04/23 17:03) Medication List - Last Reconciled 11/04/23 by Ted Diallo MD alprazolam 0.25 mg PO DAILY PRN ascorbate calcium (vitamin C) 500 mg PO DAILY aspirin 81 mg PO DAILY 90 days atorvastatin 20 mg PO DAILY blood pressure monitor (Blood Pressure Kit) As directed carvedilol 25 mg PO BID 90 days cholecalciferol (vitamin D3) 50 mcg PO DAILY citalopram 10 mg PO DAILY cyanocobalamin (vitamin B-12) 1,000 mcg PO DAILY donepezil (Aricept) 5 mg PO BEDTIME [ENSURE As directed] losartan 100 mg PO DAILY 90 days [ROLLATOR As directed] [toilet seat 1 ea miscellaneous .each] Tobacco use date assessed: 11/04/23 Fall risk assessment: No Falls in past year Last assessed Fall Risk: 11/04/23 Dental Screening Dental Screen Date: 11/04/23 HPI 6 Week F/U (rescheduled) HPI Details 78-year-old female with a history of ischemic cardiomyopathy impaired glucose tolerance hypertension aortic stenosis and bilateral knee osteoarthritis last seen in June 2023. Patient is here for follow-up patient has met with Orthopedics for the bilateral knee osteoarthritis last injection of March 2023 repeat injection done October 2023. Echocardiogram January 2023Low normal LV ejection fraction of 50-55% with impaired relaxation filling pattern 2. Moderate aortic stenosis 3. Normal RV systolic pressure 4. No gross pericardial effusion [facility] Medical History (Updated 11/04/23 @ 17:56 by Ted Diallo MD) Left wrist sprain Elbow fracture, left Injury of left elbow Aortic stenosis LBBB (left bundle branch block) Osteoarthritis Anxiety Vitamin D deficiency Impaired glucose tolerance Hypercholesterolemia Cataract Hyperlipidemia HTN (hypertension) Surgical History History of cataract surgery History of section Family History (Updated 06/26/23 @ 08:38 by DE Ellison) Father Cancer Mother Hypertension Brother No problems noted. Sister No problems noted. Son No problems noted. Daughter No problems noted. Social History Housing: Apartment Alcohol intake: never Patient Tobacco Use Status: Never used Tobacco e-Cigarette/Vaping Use: Never Used Second Hand Smoke Exposure: No service: No Current occupational status: disabled Current occupation: rt handed Cognitive needs: Yes Hearing needs: No Vision needs: No Questionnaire Thrive Questionnaire Date Thrive assessed: 06/26/23 AUDIT C Alcohol Use Questionnaire (AUDIT-C) 1. How often do you have a drink containing alcohol?: Never Total Score: 0 MARY-7 AMB Questionnaire MARY-7 Date MARY - 7 assessed: 06/26/23 Source: Developed by Drs. Latrell Mendes, Breonna Perales, Blane Alexis and colleagues, with an educational charissa from [employer]. Physical exam (Primary Care) Vital Signs: Last Vital Signs Pulse 90 11/04/23 17:00 BP 148/82 H 11/04/23 17:00 Pulse Ox 95 11/04/23 17:00 Oxygen Delivery Method Room Air 11/04/23 17:00 BMI result Body Mass Index 19.6 Tobacco/Smoking Status: Tobacco use Status Tobacco use date assessed 11/04/23 11/04/23 17:03 Patient Tobacco Use Status Never used Tobacco 11/04/23 17:03 e-Cigarette/Vaping Use Never Used 11/04/23 17:03 Thrive Assessment: Date of Thrive Assessment Date Thrive assessed 06/26/23 11/04/23 17:03 Const General: alert; No acute distress HENMT Other: impacted cerumen bilateral Eyes Conjunctivae: conjunctivae normal Resp Auscultation: clear to auscultation bilaterally Cardio Rate: regular rate Rhythm: regular rhythm GI Inspection: Yes normal to inspection Extrem General: Yes normal to inspection and No edema Assessment and Plan Assessment & Plan (1) Hypercholesterolemia: Code(s): E78.00 - Pure hypercholesterolemia, unspecified Plan: Avoid fried foods, chicken skin, eggs, butter margarine, pastries and meat. Be it pork or beef they have a lot of cholesterol LDL goal of less than 130 and triglyceride of less than 150 (2) Ischemic cardiomyopathy: Code(s): I25.5 - Ischemic cardiomyopathy Plan: Continue to follow up with Cardiology last echocardiogram done January 2023 (3) HTN (hypertension): Code(s): I10 - Essential (primary) hypertension Qualifiers: Hypertension type: essential hypertension Qualified Code(s): I10 - Essential (primary) hypertension Plan: Continue with blood pressure medication. Decrease salt intake and exercise on losartan 100 mg once a day carvedilol 25 mg twice a day (4) Aortic stenosis: Comment: December 2021 1.29 cm 01/2023 moderate (but measured 0.86) Code(s): I35.0 - Nonrheumatic aortic (valve) stenosis Qualifiers: Cardiac valve disease etiology: nonrheumatic Qualified Code(s): I35.0 - Nonrheumatic aortic (valve) stenosis Plan: Continuing to monitor echocardiogram. (5) Impacted cerumen of both ears: Code(s): H61.23 - Impacted cerumen, bilateral Plan: will need irrigation Medications: Refilled atorvastatin 20 mg PO DAILY 90 tabs 1RF carvedilol must administer with a meal/food 25 mg PO BID 90 days 180 tabs 2RF losartan 100 mg PO DAILY 90 days 90 tabs 2RF donepezil (Aricept) 5 mg PO BEDTIME 30 tabs 2RF R41.89 - Other symptoms and signs involving cognitive functions and awareness [ENSURE] As directed 30 ea 11RF R41.89 - Other symptoms and signs involving cognitive functions and awareness citalopram 10 mg PO DAILY 90 tabs 2RF Discontinued ibuprofen Discontinued Reason: Doctor's Order 800 mg PO BID 28 tabs 0RF S42.402A - Unspecified fracture of lower end of left humerus, initial encounter for closed fracture Coding Level of Care Code Est Pt Level 4 (98152) Diagnoses Hypercholesterolemia E78.00 Ischemic cardiomyopathy I25.5 Essential hypertension I10 Hypertension type: essential hypertension Nonrheumatic aortic valve stenosis I35.0 Cardiac valve disease etiology: nonrheumatic Impacted cerumen of both ears H61.23
== END 2023-11-04 18:03 | disposition home or self-care (01) ==
PROVIDERS: PCP Internal Medicine; Visit Provider Internal Medicine
DX: E78.00 Pure hypercholesterolemia, unspecified (principal); I25.5 Ischemic cardiomyopathy; I10 Essential (primary) hypertension; I35.0 Nonrheumatic aortic (valve) stenosis; H61.23 Impacted cerumen, bilateral
CPT/HCPCS: 99214

== ENCOUNTER 2023-11-20 14:00 | Outpatient (AMB) | payer OTHER, SELFPAY ==
[2023-11-20 14:02] VITALS: BP 138/72; PULSE 83; O2SAT 96; BMI 19.0
--- NOTE | 2023-11-20 14:02 | A.OFFPC_ITS ---
Vital Signs 11/20/23 14:02 Height 5 ft 2 in Weight 104 lb BMI 19.0 BP 138/72 Blood Pressure Location Lt brachial Position Sitting Pulse 83 Pulse Source Pulse Oximeter Pulse Oximetry (%) 96 Oxygen Delivery Method Room Air Intake Visit Reasons: Ear Irrigation Intake Note: Right ear bothers more than left. She also would like scripts for rollator, commode/toilet seat and ensure resent to L&C. Please print and I will fax again. Allergies No Known Allergies Allergy (Verified 11/20/23 14:02) Tobacco use date assessed: 11/04/23 Fall risk assessment: No Falls in past year Last assessed Fall Risk: 11/20/23 Dental Screening Dental Screen Date: 11/20/23 Did you have a dental visit in the last 12 months?: No Did you have a dental problem in the last 6 months where you did not have access to dental care?: No Was dental information given to patient?: No HPI Ear Irrigation HPI Details 78-year-old female with hypertension isc hemic cardiomyopathy hypercholesterolemia coming in for irrigation. [facility] Medical History (Updated 11/04/23 @ 17:56 by Ted Diallo MD) Left wrist sprain Elbow fracture, left Injury of left elbow Aortic stenosis LBBB (left bundle branch block) Osteoarthritis Anxiety Vitamin D deficiency Impaired glucose tolerance Hypercholesterolemia Cataract Hyperlipidemia HTN (hypertension) Surgical History History of cataract surgery History of section Family History (Updated 06/26/23 @ 08:38 by DE Ellison) Father Cancer Mother Hypertension Brother No problems noted. Sister No problems noted. Son No problems noted. Daughter No problems noted. Social History Housing: Apartment Alcohol intake: never Patient Tobacco Use Status: Never used Tobacco e-Cigarette/Vaping Use: Never Used Second Hand Smoke Exposure: No service: No Current occupational status: disabled Current occupation: rt handed Cognitive needs: Yes Hearing needs: No Vision needs: No Questionnaire PHQ-9 Over the last 2 weeks, how often have you been bothered by any of the following problems? 1. Little interest or pleasure in doing things: several days 2. Feeling down, depressed, or hopeless: several days 3. Trouble falling or staying asleep, or sleeping too much: more than half the days 4. Feeling tired or having little energy: several days 5. Poor appetite or overeating: more than half the days 6. Feeling bad about yourself - or that you are a failure or have let yourself or your family down: not at all 7. Trouble concentrating on things, such as reading the newspaper or watching television: not at all 8. Moving or speaking so slowly that other people could have noticed. Or the opposite - being so fidgety or restless that you have been moving around a lot more than usual: not at all 9. Thoughts that you would be better off or of hurting yourself in some way: not at all Total score: 7 Depression Screening Interpretation: Negative Depression Screening Done: Yes Source: Developed by Drs. Latrell Mendes, Breonna Perales, Blane Alexis and colleagues, with an educational charissa from [employer]. Thrive Questionnaire Date Thrive assessed: 11/20/23 I am a: Patient What is your living situation today?: I have a steady place to live Within the past 12 months, did the food you bought not last and you didn't have the money to get more?: Never true Within the past 12 months, did you worry whether your food would run out before you got money to buy more?: Never true Do you have trouble paying for medicines?: No Do you have trouble getting transportation to medical appointments?: No Do you have trouble paying your heating and electricity bill?: No Do you have trouble taking care of your child, family member or friend?: No Do you have trouble with day-to-day activities such as bathing, preparing meals, shopping, managing finances, etc.?: No Are you currently unemployed and looking for a job?: No Are you interested in more education?: No Currently or been in a relationship where the following occur: no concerns reported THRIVE Score: 0 AUDIT C Alcohol Use Questionnaire (AUDIT-C) 1. How often do you have a drink containing alcohol?: Never Total Score: 0 MARY-7 AMB Questionnaire MARY-7 Date MARY - 7 assessed: 11/20/23 Feeling nervous, anxious, or on edge: 0 = Not at all Not being able to stop or control worryin = Not at all Worrying too much about different things: 0 = Not at all Trouble relaxin = Not at all Being so restless that it is hard to sit still: 0 = Not at all Becoming easily annoyed or irritable: 0 = Not at all Feeling afraid as if something awful might happen: 0 = Not at all Total MARY-7 score (0-4 normal; 5-9 mild; 10-14 moderate; 15-21 severe): 0 Source: Developed by Drs. Latrell Mendes, Breonna Perales, Blane Alexis and colleagues, with an educational charissa from [employer]. Physical exam (Primary Care) Vital Signs: Last Vital Signs Pulse 83 11/20/23 14:02 BP 138/72 11/20/23 14:02 Pulse Ox 96 11/20/23 14:02 Oxygen Delivery Method Room Air 11/20/23 14:02 BMI result Body Mass Index 19.0 Tobacco/Smoking Status: Tobacco use Status Tobacco use date assessed 11/04/23 11/20/23 14:04 Patient Tobacco Use Status Never used Tobacco 11/20/23 14:04 e-Cigarette/Vaping Use Never Used 11/20/23 14:04 PHQ-9: PHQ-9 Score PHQ-9: Total score 7 11/20/23 14:12 Depression Screening Interpretation: Negative Thrive Assessment: Date of Thrive Assessment Date Thrive assessed 11/20/23 11/20/23 14:04 Currently or been in a relationship where the following occur: no concerns reported Const Other: Impacted cerumen bilateral Office Procedures Cerumen Removal From which ear canal was the cerumen removed: bilateral Removal: irrigation, otoscope w/curette, cerumen loop/spoon and other Notes: patient tolerated procedure well, no complications and ear canal clear [id number] Irrigation/Lavage Assessment and Plan Assessment & Plan (1) Impacted cerumen of both ears: Code(s): H61.23 - Impacted cerumen, bilateral Plan: irrigation and Scoop used TM intact Medications: Refilled [ENSURE] As directed 30 ea 11RF R41.89 - Other symptoms and signs involving cognitive functions and awareness [toilet seat] 1 ea miscellaneous .each 1 ea 0RF I50.9 - Heart failure, unspecified, R26.81 - Unsteadiness on feet Coding Level of Care Code Est Pt Level 3 (79235) Diagnoses Impacted cerumen of both ears H61.23 CPT Codes Office Procedure - CPT: 33816-Zqx Irrigation/Lavage ([id number]) Additional Codes PHQ-9 - 77174 - PHQ-9 Billing: ([id number])
== END 2023-11-20 14:39 | disposition home or self-care (01) ==
PROVIDERS: PCP Internal Medicine; Visit Provider Internal Medicine
DX: H61.23 Impacted cerumen, bilateral (principal)
CPT/HCPCS: 69210; 99213

== ENCOUNTER → 2024-01-30 10:43 | Outpatient (REF) | payer OTHER, SELFPAY ==
--- NOTE | 2024-01-30 10:46 | CA_ITS ---
Transthoracic Echocardiogram Patient (Last, First, Middle): Niya Noriega, Gender: Female Date of : 1945 Age: 78 Procedure Date: 01/30/2024 Procedure Type: Transthoracic Echocardiogram Location: OP Height: 142.24 cm Weight: 47.17 kg BSA: 1.34 m2 Heart Rate: bpm BP: 138 / 72 mmHg Dining Room Manager: MARCOS Referring MD: Js Fried MD Symptoms: I35.0 - Nonrheumatic aortic (valve) stenosis Study Quality: Adequate Conclusions: - The visually estimated ejection fraction is between 55-60%. - Normal right ventricular cavity size and systolic function. - There is moderate aortic valve stenosis. - TEDDY again calculated in the severe range but gradient is moderate with normal SVI. Dimensionless index is 0.34- consistent more with moderate . Findings Left Ventricle Normal left ventricular size and systolic function. The visually estimated ejection fraction is between 55-60%. There is paradoxical septal motion consistent with a left bundle branch block. Diastolic function is indeterminate on the basis of available data. Right Ventricle Normal right ventricular cavity size and systolic function. Atria The left atrium is severely dilated. The right atrium is moderately dilated. Aortic Valve There is moderate calcification of the aortic valve. There is moderate thickening of the aortic valve. There is moderate aortic valve stenosis. The peak aortic velocity is 2.92 m/s. The mean gradient is 20 mmHg. The aortic valve area is 0.98 cm2. There is mild aortic valve regurgitation. Mitral Valve There is mild mitral annular calcification. There is no mitral valve regurgitation. There is no mitral valve stenosis. Pulmonic Valve The pulmonic valve is likely normal. Tricuspid Valve Normal tricuspid valve structure. There is trace tricuspid valve regurgitation. Normal right atrial pressure. There is no evidence of pulmonary hypertension. Great Vessels All visible segments of the aorta are normal in size. Venous The inferior vena cava is normal in size and collapses greater than 50% with inspiration. Pericardium/Pleural There is no evidence of pericardial effusion. Prior Study Comparison No significant change compared to prior study dated: 01/08/2023. Measurements 2D Linear Measurements IVSd: 0.46 0.6-0.9/0.6-1.0 cm LVIDd: 4.67 3.9-5.3/4.2-5.9 cm LVIDd Index: 3.49 2.4-3.2/2.2-3.1 cm/m2 LVIDs: 3.23 2.0-3.6 cm LVPWd: 0.87 0.7-1.1 cm LA Diam: 2.40 2.7-3.8/3.0-4.0 cm LAIDs Index: 1.79 1.5-2.3 cm/m2 LV Mass: 118.27 67-162/88-224 g LV Mass Index: 88.26 43-95/49-115 g/m2 LVOT Diam: 1.90 3.0+(-)1.3 cm 2D Systolic Function EF 4C: 55.70 >55% EF 2C: 68.90 >55% EF BiP: 61.90 >55% Mitral Valve MV Pk E: 0.90 MV PK A: 1.08 MV Decel Time: 202.00 E/A: 0.80 E'Lateral: 7.83 E'Medial: 5.22 E/E' Med: 17.10 E/E' Lat: 11.40 PHT: 59.00 MVA PHT: 3.73 Decel Crisp: 4.43 Aortic Valve AoV Pk Mina: 2.92 AoV Mn Mina: 2.10 AoV VTI: 0.71 AoV Pk Grad: 34.00 Aov Mn Grad: 20.00 TEDDY Cont.VTI: 0.98 AI Pk Mina: 4.41 AI Crisp: 2.75 LVOT LVOT Pk Mina: 0.98 LVOT Mn Mina: 0.74 LVOT VTI: 0.25 LVOT Pk Grad: 4.00 LVOT Mn Grad: 2.00 LVOT Diam: 1.90 LVOT Area: 2.84 Diastolic Function MV Pk E: 0.90 MV Pk A: 1.08 E/A: 0.80 E'Medial: 5.22 E/E' Med: 17.10 E' Laterial: 7.83 E/E' Lat: 11.40 Right Ventricle TAPSE (mm): 24.00 TVS' Mina: 16.40 Tricuspid Valve TR Pk Mina: 2.58 TR Pk Grad: 27.00 RA Press: 3.00 RVSP: 30.00 Great Vessels Aorta Sinus of Valsalva: 2.99 2.0-3.[address] Ridge: 1.94 1.7-3.4 cm Ao Asc: 3.20 2.1-3.4 cm Updated in Other Vendor System with Status of Final Oj Rios MD electronically signed on 02/03/2024 3:36:14 PM with status of Final
== END ==
LOC: HO.CARD 10:43
PROVIDERS: PCP Internal Medicine; Visit Provider Internal Medicine Cardiovascular Disease
DX: I35.0 Nonrheumatic aortic (valve) stenosis (principal)
CPT/HCPCS: 93306

== ENCOUNTER → 2024-01-30 10:46 | Outpatient (BNV) | payer OTHER, SELFPAY | PROVIDERS: PCP Internal Medicine; Visit Provider Internal Medicine Cardiovascular Disease | DX: I35.2 Nonrheumatic aortic (valve) stenosis with insufficiency (principal) | CPT/HCPCS: 93306 ==

== ENCOUNTER 2024-03-09 16:48 | Outpatient (AMB) | payer OTHER, SELFPAY ==
[2024-03-09 16:55] VITALS: BP 130/80; PULSE 88; O2SAT 98; BMI 19.4
--- NOTE | 2024-03-09 16:55 | MHC.PC.OV ---
Vital Signs 03/09/24 16:55 Height 5 ft 2 in Weight 106 lb BMI 19.4 BP 130/80 Blood Pressure Location Lt brachial Position Sitting Pulse 88 Pulse Source Pulse Oximeter Pulse Oximetry (%) 98 Oxygen Delivery Method Room Air Intake Visit Reasons: , HTN Cardiology Technician: Present Allergies No Known Allergies Allergy (Verified 03/09/24 16:55) Medication List - Last Reconciled 03/09/24 by Ted Diallo MD alprazolam 0.25 mg PO DAILY PRN ascorbate calcium (vitamin C) 500 mg PO DAILY aspirin 81 mg PO DAILY 90 days atorvastatin 20 mg PO DAILY blood pressure monitor (Blood Pressure Kit) As directed carvedilol 25 mg PO BID 90 days cholecalciferol (vitamin D3) 50 mcg PO DAILY citalopram 10 mg PO DAILY cyanocobalamin (vitamin B-12) 1,000 mcg PO DAILY donepezil 5 mg PO BEDTIME [ENSURE As directed] losartan 100 mg PO DAILY 90 days [ROLLATOR As directed] [toilet seat 1 ea miscellaneous .each] Tobacco use date assessed: 11/04/23 Fall risk assessment: No Falls in past year Last assessed Fall Risk: 03/09/24 Dental Screening Dental Screen Date: 11/20/23 HPI , HTN HPI Details 78-year-old female with hypercholesterolemia ischemic cardiomyopathy hypertension impaired glucose tolerance generalized anxiety disorder coming in for follow-up. Last seen in November for impacted cerumen. Bone density last done in 06/28/2022. Review of the notes ER visit 02/27/2024 confusion. Patient also has aortic stenosis echocardiogram done 01/27/2024he visually estimated ejection fraction is between 55-60%. - Normal right ventricular cavity size and systolic function. - There is moderate aortic valve stenosis. - TEDDY again calculated in the severe range but gradient is moderate with normal SVI. Dimensionless index is 0.34- consistent more with moderate . 0.98 cm squared Patient has dementia and left house seen by police and sent to ER- PAtient has stopped a lot of med and they do not know- will need to bring in med [facility] Medical History (Updated 03/09/24 @ 17:16 by Ted Diallo MD) Left wrist sprain Elbow fracture, left Injury of left elbow Aortic stenosis LBBB (left bundle branch block) Osteoarthritis Anxiety Vitamin D deficiency Impaired glucose tolerance Hypercholesterolemia Cataract Hyperlipidemia HTN (hypertension) Surgical History History of cataract surgery History of section Family History (Updated 06/26/23 @ 08:38 by DE Ellison) Father Cancer Mother Hypertension Brother No problems noted. Sister No problems noted. Son No problems noted. Daughter No problems noted. Social History Housing: Apartment Alcohol intake: never Patient Tobacco Use Status: Never used Tobacco e-Cigarette/Vaping Use: Never Used Second Hand Smoke Exposure: No service: No Current occupational status: disabled Current occupation: rt handed Cognitive needs: Yes Hearing needs: No Vision needs: No Questionnaire Thrive Questionnaire Date Thrive assessed: 11/20/23 MARY-7 AMB Questionnaire MARY-7 Date MARY - 7 assessed: 11/20/23 Source: Developed by Drs. Latrell Mendes, Breonna Perales, Blane Alexis and colleagues, with an educational charissa from [employer]. Physical exam (Primary Care) Vital Signs: Last Vital Signs Pulse 88 03/09/24 16:55 BP 130/80 03/09/24 16:55 Pulse Ox 98 03/09/24 16:55 Oxygen Delivery Method Room Air 03/09/24 16:55 BMI result Body Mass Index 19.4 Tobacco/Smoking Status: Tobacco use Status Tobacco use date assessed 11/04/23 03/09/24 16:56 Patient Tobacco Use Status Never used Tobacco 03/09/24 16:56 e-Cigarette/Vaping Use Never Used 03/09/24 16:56 Thrive Assessment: Date of Thrive Assessment Date Thrive assessed 11/20/23 03/09/24 16:56 Const General: alert; No acute distress Eyes Conjunctivae: conjunctivae normal Resp Auscultation: clear to auscultation bilaterally Cardio Rate: regular rate Rhythm: regular rhythm GI Inspection: Yes normal to inspection Extrem General: Yes normal to inspection and No edema Assessment and Plan Assessment & Plan (1) Aortic stenosis: Comment: December 2021 1.29 cm 01/2023 moderate (but measured 0.86) 01/2024 0.98 cm squared Code(s): I35.0 - Nonrheumatic aortic (valve) stenosis Qualifiers: Cardiac valve disease etiology: nonrheumatic Qualified Code(s): I35.0 - Nonrheumatic aortic (valve) stenosis Plan: Patient is under surveillance continue to follow-up. (2) Cognitive impairment: Code(s): R41.89 - Other symptoms and signs involving cognitive functions and awareness Plan: Has been placed on donepezil. Discussed with family the problem. Discussed with her the need for her to be having 24 care. (3) Hypercholesterolemia: Code(s): E78.00 - Pure hypercholesterolemia, unspecified Plan: Avoid fried foods, chicken skin, eggs, butter margarine, pastries and meat. Be it pork or beef they have a lot of cholesterol LDL goal of less than 100 and triglyceride of less than 150 on atorvastatin 10/2023 for last blood work (4) Ischemic cardiomyopathy: Code(s): I25.5 - Ischemic cardiomyopathy Plan: Continue with blood pressure control cholesterol control (5) HTN (hypertension): Code(s): I10 - Essential (primary) hypertension Qualifiers: Hypertension type: essential hypertension Qualified Code(s): I10 - Essential (primary) hypertension Plan: Continue with blood pressure medication. Decrease salt intake and exercise takes carvedilol 25 mg twice a day and losartan 100 mg once a day (6) Impaired glucose tolerance: Code(s): R73.02 - Impaired glucose tolerance (oral) Plan: Decrease the amount of carbohydrate intake, pasta, bread, rice and potatoes are all sugar and that is aside from all the sweet stuff, remember that fruits are good but they are Sweet also. Coding Level of Care Code Est Pt Level 4 (57965) Complex EM visit Add On G2211 Diagnoses Nonrheumatic aortic valve stenosis I35.0 Cardiac valve disease etiology: nonrheumatic Cognitive impairment R41.89 Hypercholesterolemia E78.00 Ischemic cardiomyopathy I25.5 Essential hypertension I10 Hypertension type: essential hypertension Impaired glucose tolerance R73.02
== END 2024-03-09 17:44 | disposition home or self-care (01) ==
PROVIDERS: PCP Internal Medicine; Visit Provider Internal Medicine
DX: I35.0 Nonrheumatic aortic (valve) stenosis (principal); R41.89 Other symptoms and signs involving cognitive functions and awareness; E78.00 Pure hypercholesterolemia, unspecified; I25.5 Ischemic cardiomyopathy; I10 Essential (primary) hypertension; R73.02 Impaired glucose tolerance (oral)
CPT/HCPCS: 99214; G2211

== ENCOUNTER 2024-04-21 09:33 | Outpatient (AMB) | payer OTHER, SELFPAY ==
--- NOTE | 2024-04-21 09:37 | A.OFFVIS_ITS ---
Intake Visit Reasons: OV- B/L knee OA last inj 10/29/23 Intake Note: Niya is a 78 year old female who presents today for a follow up of her bilateral knee OA, last injection 10/29/23. Patient reports her last injection gave her about 3 - 4 months of relief. She mentions that she will like to repeat. Allergies No Known Allergies Allergy (Verified 03/09/24 16:55) HPI HPI OV- B/L knee OA last inj 10/29/23: Details: 78-year-old female, who is Serbian speaking, presents in the office today for a follow-up of bilateral knee osteoarthritis. I last saw the patient in the office on 10/29/23 when she received cortisone injections in the bilateral knees. ? ? While in the office today, the patient reports her last injection gave her about 3-4 months of relief. She would like to repeat the cortisone injections in the office today. ? [facility] Medical History (Updated 03/09/24 @ 17:16 by Ted Diallo MD) Left wrist sprain Elbow fracture, left Injury of left elbow Aortic stenosis LBBB (left bundle branch block) Osteoarthritis Anxiety Vitamin D deficiency Impaired glucose tolerance Hypercholesterolemia Cataract Hyperlipidemia HTN (hypertension) Surgical History History of cataract surgery History of section Family History (Updated 06/26/23 @ 08:38 by DE Ellison) Father Cancer Mother Hypertension Brother No problems noted. Sister No problems noted. Son No problems noted. Daughter No problems noted. Social History Housing: Apartment Alcohol intake: never Patient Tobacco Use Status: Never used Tobacco e-Cigarette/Vaping Use: Never Used Second Hand Smoke Exposure: No service: No Current occupational status: disabled Current occupation: rt handed Cognitive needs: Yes Hearing needs: No Vision needs: No Review of Systems Const All systems reviewed & are unremarkable except as noted in HPI and below Physical Exam Const General: cooperative, healthy appearing and no acute distress Resp Effort & Inspection: normal respiratory effort and able to speak in complete sentences Cardio Rate: regular rate Peripheral pulses: Peripheral pulses 2+ throughout GI Palpation (GI): Soft to palpation Skin Lesions: no lesions Rashes: no rashes Extrem Other: Bilateral knees skin intact, no erythema or joint effusion. Tenderness along the medial joint line. Creptius felt with ROM. Negative steinmans. No ligamentous laxity. NVI. Office Procedures Joint Injection/Aspiration Joint Injection/Aspiration Primary Site: right knee Secondary Site: left knee Prep: site was prepped using aseptic technique, ethochloride spray was applied and injection warnings given Injected: 80 mg of, DepoMedrol, with 8 mL of (2% plain lido) and in the joint Approach Used: anterolateral Procedure: The patient tolerated the procedure well, but had some pain with the injection and there was some relief with the local anesthesia Coding - Large joint Procedure code (CPT) selection complete Assessment & Plan Assessment & Plan (1) Osteoarthritis of knees, bilateral: Code(s): M17.0 - Bilateral primary osteoarthritis of knee Category: Medical Qualifiers: Osteoarthritis type: unspecified Qualified Code(s): M17.0 - Bilateral primary osteoarthritis of knee Plan Ms. Noriega is an 78-year-old female, who is Serbian speaking, presents in the office today for a follow-up of bilateral knee osteoarthritis. I last saw the patient in the office on 10/29/23 when she received cortisone injections in the bilateral knees. ? ? While in the office today, the patient reports her last injection gave her about 3-4 months of relief. She would like to repeat the cortisone injections in the office today.? ? The patient was offered a cortisone injection in the bilateral knees with 80 mg of DepoMedrol. The patient was explained the risk, benefits, and alternatives to receiving this injection. After receiving consent for the injection, the patient had the procedure done while in the office today. The patient tolerated the procedure well with no complications. Follow-up will be PRN, or sooner if needed.? Patient Instructions: Scribed by Nurys Novak registered medical assistant, for Yessi Carroll PA-C on 04/21/2024 at 9:57 am, EST.? Coding Level of Care Code Est Pt Level 3 (91921) Diagnoses Osteoarthritis of both knees, unspecified osteoarthritis type M17.0 Osteoarthritis type: unspecified CPT Codes Coding - Large joint: 83011 - Large joint ([id number])
== END 2024-04-21 10:08 | disposition home or self-care (01) ==
PROVIDERS: PCP Internal Medicine; Visit Provider Physician Assistant
DX: M17.0 Bilateral primary osteoarthritis of knee (principal)
CPT/HCPCS: 20610; 99213

== ENCOUNTER → 2024-04-21 09:33 | Outpatient (BNVA) | payer OTHER, SELFPAY | PROVIDERS: PCP Internal Medicine; Visit Provider Physician Assistant | DX: M17.0 Bilateral primary osteoarthritis of knee (principal) | CPT/HCPCS: 20610; 99212; J1010 ==

== ENCOUNTER 2024-05-18 16:46 | Outpatient (AMB) | payer OTHER, SELFPAY ==
--- NOTE | 2024-05-18 16:47 | MHC.PC.OV ---
Vital Signs 05/18/24 16:49 Height 5 ft 2 in Weight 109 lb BMI 19.9 BP 132/64 Blood Pressure Location Lt brachial Position Sitting Pulse 80 Pulse Source Pulse Oximeter Pulse Oximetry (%) 95 Oxygen Delivery Method Room Air Intake Visit Reasons: Review/Follow up bedside commode and incontinence Allergies No Known Allergies Allergy (Verified 05/18/24 16:50) Tobacco use date assessed: 11/04/23 Fall risk assessment: No Falls in past year Last assessed Fall Risk: 05/18/24 Dental Screening Dental Screen Date: 11/20/23 HPI Review/Follow up bedside commode and incontinence HPI Details 79-year-old female with a history of aortic stenosis cognitive impairment hypercholesterolemia ischemic cardiomyopathy hypertension impaired glucose tolerance last seen in 03/28/2024. Patient has been incontinent and is asking for a bedside commode. And briefs. Also with a osteoarthritis wants a knee sleeve. [facility] Medical History (Updated 05/18/24 @ 16:58 by Ted Diallo MD) Left wrist sprain Elbow fracture, left Injury of left elbow Aortic stenosis LBBB (left bundle branch block) Osteoarthritis Anxiety Vitamin D deficiency Impaired glucose tolerance Hypercholesterolemia Cataract Hyperlipidemia HTN (hypertension) Surgical History History of cataract surgery History of section Family History (Updated 06/26/23 @ 08:38 by DE Ellison) Father Cancer Mother Hypertension Brother No problems noted. Sister No problems noted. Son No problems noted. Daughter No problems noted. Social History Housing: Apartment Alcohol intake: never Patient Tobacco Use Status: Never used Tobacco Tobacco use type: Cigarette e-Cigarette/Vaping Use: Never Used Second Hand Smoke Exposure: No service: No Current occupational status: disabled Current occupation: rt handed Cognitive needs: Yes Hearing needs: No Vision needs: No Questionnaire PHQ-9 Over the last 2 weeks, how often have you been bothered by any of the following problems? 1. Little interest or pleasure in doing things: several days 2. Feeling down, depressed, or hopeless: several days 3. Trouble falling or staying asleep, or sleeping too much: more than half the days 4. Feeling tired or having little energy: several days 5. Poor appetite or overeating: more than half the days 6. Feeling bad about yourself - or that you are a failure or have let yourself or your family down: not at all 7. Trouble concentrating on things, such as reading the newspaper or watching television: not at all 8. Moving or speaking so slowly that other people could have noticed. Or the opposite - being so fidgety or restless that you have been moving around a lot more than usual: not at all 9. Thoughts that you would be better off or of hurting yourself in some way: not at all Total score: 7 Depression Screening Interpretation: Negative Depression Screening Done: Yes Source: Developed by Drs. Latrell Mendes, Breonna Perales, Blane Alexis and colleagues, with an educational charissa from [employer]. Thrive Questionnaire Date Thrive assessed: 11/20/23 AUDIT C Alcohol Use Questionnaire (AUDIT-C) 1. How often do you have a drink containing alcohol?: Never Total Score: 0 MARY-7 AMB Questionnaire MARY-7 Date MARY - 7 assessed: 11/20/23 Source: Developed by Drs. Latrell Mendes, Breonna Perales, Blane Alexis and colleagues, with an educational charissa from [employer]. Physical exam (Primary Care) Vital Signs: Last Vital Signs Pulse 80 05/18/24 16:49 BP 132/64 05/18/24 16:49 Pulse Ox 95 05/18/24 16:49 Oxygen Delivery Method Room Air 05/18/24 16:49 BMI result Body Mass Index 19.9 Tobacco/Smoking Status: Tobacco use Status Tobacco use date assessed 11/04/23 03/09/24 16:56 Patient Tobacco Use Status Never used Tobacco 03/09/24 16:56 e-Cigarette/Vaping Use Never Used 03/09/24 16:56 Depression Screening Interpretation: Negative Thrive Assessment: Date of Thrive Assessment Date Thrive assessed 11/20/23 03/09/24 16:56 Const General: alert; No acute distress Eyes Conjunctivae: conjunctivae normal Resp Auscultation: clear to auscultation bilaterally Cardio Rate: regular rate Rhythm: regular rhythm GI Inspection: Yes normal to inspection Extrem General: Yes normal to inspection and No edema Assessment and Plan Assessment & Plan (1) Osteoarthritis of knees, bilateral: Code(s): M17.0 - Bilateral primary osteoarthritis of knee Qualifiers: Osteoarthritis type: unspecified Qualified Code(s): M17.0 - Bilateral primary osteoarthritis of knee Plan: Will do a prescription for bedside commode as the patient has hard time with mobility (2) Aortic stenosis: Comment: December 2021 1.29 cm 01/2023 moderate (but measured 0.86) 01/2024 0.98 cm squared Code(s): I35.0 - Nonrheumatic aortic (valve) stenosis Qualifiers: Cardiac valve disease etiology: nonrheumatic Qualified Code(s): I35.0 - Nonrheumatic aortic (valve) stenosis Plan: Continuing to monitor aortic stenosis. (3) Gait instability: Code(s): R26.81 - Unsteadiness on feet (4) Hypercholesterolemia: Code(s): E78.00 - Pure hypercholesterolemia, unspecified Plan: Avoid fried foods, chicken skin, eggs, butter margarine, pastries and meat. Be it pork or beef they have a lot of cholesterol on atorvastatin LDL goal of less than 70 and triglyceride of less than 150 (5) Cognitive impairment: Code(s): R41.89 - Other symptoms and signs involving cognitive functions and awareness Plan: Supportive treatment (6) Urge incontinence: Code(s): N39.41 - Urge incontinence Medications: New [KNEE SLEEVE] As directed bilateral 4 ea 0RF M17.0 - Bilateral primary osteoarthritis of knee [BRIEFS MEDIUM] As directed 120 ea 11RF N39.41 - Urge incontinence [BEDSIDE COMMODE] As directed 1 ea 0RF M17.0 - Bilateral primary osteoarthritis of knee, N39.41 - Urge incontinence Discontinued aspirin Discontinued Reason: Doctor's Order 81 mg PO DAILY 90 days 90 tabs 2RF citalopram Discontinued Reason: Patient Refused 10 mg PO DAILY 90 tabs 2RF Coding Level of Care Code Est Pt Level 4 (58177) Diagnoses Osteoarthritis of both knees, unspecified osteoarthritis type M17.0 Osteoarthritis type: unspecified Nonrheumatic aortic valve stenosis I35.0 Cardiac valve disease etiology: nonrheumatic Gait instability R26.81 Hypercholesterolemia E78.00 Cognitive impairment R41.89 Urge incontinence N39.41 Additional Codes PHQ-9 - 42271 - PHQ-9 Billing: ([id number])
[2024-05-18 16:49] VITALS: BP 132/64; PULSE 80; O2SAT 95; BMI 19.9
== END 2024-05-18 17:43 | disposition home or self-care (01) ==
PROVIDERS: PCP Internal Medicine; Visit Provider Internal Medicine
DX: M17.0 Bilateral primary osteoarthritis of knee (principal); I35.0 Nonrheumatic aortic (valve) stenosis; R26.81 Unsteadiness on feet; E78.00 Pure hypercholesterolemia, unspecified; R41.89 Other symptoms and signs involving cognitive functions and awareness; N39.41 Urge incontinence
CPT/HCPCS: 99214

== ENCOUNTER 2024-09-22 15:18 | Outpatient (AMB) | payer OTHER, SELFPAY ==
--- NOTE | 2024-09-22 15:22 | MHC.OFFVIS ---
Intake Visit Reasons: B/L knee OA, last inj 04/21/24 Intake Note: Niya is a 79 year old female who presents today for repeat injections for her bilateral knee OA, last injection 04/21/24. Patient reports her last injections gave her relief and would like to repeat. Allergies No Known Allergies Allergy (Verified 05/18/24 16:50) HPI HPI B/L knee OA, last inj 04/21/24: Details: Patient presents to the office today for bilateral knee injection. Last cortisone injection was 04/21/2024. [facility] Medical History (Updated 05/18/24 @ 16:58 by Ted Diallo MD) Left wrist sprain Elbow fracture, left Injury of left elbow Aortic stenosis LBBB (left bundle branch block) Osteoarthritis Anxiety Vitamin D deficiency Impaired glucose tolerance Hypercholesterolemia Cataract Hyperlipidemia HTN (hypertension) Surgical History History of cataract surgery History of section Family History (Updated 06/26/23 @ 08:38 by DE Ellison) Father Cancer Mother Hypertension Brother No problems noted. Sister No problems noted. Son No problems noted. Daughter No problems noted. Social History Housing: Apartment Alcohol intake: never Patient Tobacco Use Status: Never used Tobacco Tobacco use type: Cigarette e-Cigarette/Vaping Use: Never Used Second Hand Smoke Exposure: No service: No Current occupational status: disabled Current occupation: rt handed Cognitive needs: Yes Hearing needs: No Vision needs: No Review of Systems Const All systems reviewed & are unremarkable except as noted in HPI and below Physical Exam Const General: cooperative, healthy appearing and no acute distress Resp Effort & Inspection: normal respiratory effort and able to speak in complete sentences Cardio Rate: regular rate Peripheral pulses: Peripheral pulses 2+ throughout GI Palpation (GI): Soft to palpation Skin Lesions: no lesions Rashes: no rashes Extrem Other: Bilateral knees skin intact, no erythema or joint effusion. Tenderness along the medial joint line. Creptius felt with ROM. NVI. Office Procedures AMB Joint Injection/Aspiration Joint Injection/Aspiration Primary Site: right knee Secondary Site: left knee Prep: site was prepped using aseptic technique, ethochloride spray was applied and injection warnings given Injected: 80 mg of, DepoMedrol, with 8 mL of (2% plain lidocaine) and in the joint Approach Used: anterolateral Procedure: The patient tolerated the procedure well, but had some pain with the injection and there was some relief with the local anesthesia Coding 90596 - Large joint Procedure code (CPT) selection complete Assessment & Plan Assessment & Plan (1) Osteoarthritis of knees, bilateral: Code(s): M17.0 - Bilateral primary osteoarthritis of knee Category: Medical Qualifiers: Osteoarthritis type: unspecified Qualified Code(s): M17.0 - Bilateral primary osteoarthritis of knee Plan The patient was offered a cortisone injection in bilateral knees with 80 mg of DepoMedrol. The patient was explained the risks, benefits, and alternatives to receiving this injection. After receiving consent for the injection, the patient had the procedure done while in the office today. The patient tolerated the procedure well with no complications. Follow-up will be p.r.n., or sooner if needed Coding Level of Care Code Est Pt Level 3 (38360) Diagnoses Osteoarthritis of both knees, unspecified osteoarthritis type M17.0 Osteoarthritis type: unspecified CPT Codes Coding - 95649 Large joint: 19036 - Large joint ([id number])
== END 2024-09-22 16:02 | disposition home or self-care (01) ==
PROVIDERS: PCP Internal Medicine; Visit Provider Physician Assistant
DX: M17.0 Bilateral primary osteoarthritis of knee (principal)
CPT/HCPCS: 20610; 99213

== ENCOUNTER → 2024-09-22 15:18 | Outpatient (BNVA) | payer OTHER, SELFPAY | PROVIDERS: PCP Internal Medicine; Visit Provider Physician Assistant | DX: M18.0 Bilateral primary osteoarthritis of first carpometacarpal joints (principal) | CPT/HCPCS: 20610; 99212; J1010; J2003 ==

== ENCOUNTER 2024-12-30 13:22 | Outpatient (AMB) | payer OTHER, SELFPAY ==
[2024-12-30 13:27] VITALS: BP 138/72; PULSE 77; O2SAT 94; BMI 18.7
--- NOTE | 2024-12-30 13:27 | A.OFFPC_ITS ---
Vital Signs 12/30/24 13:27 Height 5 ft 2 in Weight 102 lb BMI 18.7 BP 138/72 Blood Pressure Location Lt brachial Position Sitting Pulse 77 Pulse Source Pulse Oximeter Pulse Oximetry (%) 94 Oxygen Delivery Method Room Air Intake Visit Reasons: Dementia Allergies No Known Allergies Allergy (Verified 12/30/24 13:27) Medication List - Last Reconciled 12/30/24 by Ted Diallo MD alprazolam 0.25 mg PO DAILY PRN atorvastatin 20 mg PO DAILY [BEDSIDE COMMODE As directed] blood pressure monitor (Blood Pressure Kit) As directed carvedilol 25 mg PO BID 90 days donepezil 5 mg PO BEDTIME [ENSURE As directed] [KNEE SLEEVE As directed bilateral] losartan 100 mg PO DAILY 90 days [Pull ups As directed] [ROLLATOR As directed] [toilet seat 1 ea miscellaneous .each] Tobacco use date assessed: 12/30/24 Fall risk assessment: No Falls in past year Last assessed Fall Risk: 12/30/24 Dental Screening Dental Screen Date: 12/30/24 Did you have a dental visit in the last 12 months?: No Did you have a dental problem in the last 6 months where you did not have access to dental care?: No Was dental information given to patient?: No [facility] Medical History (Updated 12/30/24 @ 14:06 by Ted Diallo MD) Left wrist sprain Elbow fracture, left Injury of left elbow Aortic stenosis LBBB (left bundle branch block) Osteoarthritis Anxiety Vitamin D deficiency Impaired glucose tolerance Hypercholesterolemia Cataract Hyperlipidemia HTN (hypertension) Surgical History History of cataract surgery History of section Family History (Updated 06/26/23 @ 08:38 by DE Ellison) Father Cancer Mother Hypertension Brother No problems noted. Sister No problems noted. Son No problems noted. Daughter No problems noted. Social History Housing: Apartment Alcohol intake: never Patient Tobacco Use Status: Never used Tobacco Tobacco use type: Cigarette e-Cigarette/Vaping Use: Never Used Second Hand Smoke Exposure: No service: No Current occupational status: disabled Current occupation: rt handed Cognitive needs: Yes Hearing needs: No Vision needs: No Questionnaire PHQ-9 Over the last 2 weeks, how often have you been bothered by any of the following problems? 1. Little interest or pleasure in doing things: several days 2. Feeling down, depressed, or hopeless: several days 3. Trouble falling or staying asleep, or sleeping too much: more than half the days 4. Feeling tired or having little energy: several days 5. Poor appetite or overeating: more than half the days 6. Feeling bad about yourself - or that you are a failure or have let yourself or your family down: not at all 7. Trouble concentrating on things, such as reading the newspaper or watching television: not at all 8. Moving or speaking so slowly that other people could have noticed. Or the opposite - being so fidgety or restless that you have been moving around a lot more than usual: not at all 9. Thoughts that you would be better off or of hurting yourself in some way: not at all Total score: 7 Depression Screening Interpretation: Positive Depression Screening Done: Yes 31601 - PHQ-9 Billing: Yes Source: Developed by Drs. Latrell Mendes, Breonna Perales, Blane Alexis and colleagues, with an educational charissa from [employer]. Thrive Questionnaire Date Thrive assessed: 12/30/24 I am a: Patient What is your living situation today?: I have a steady place to live Within the past 12 months, did the food you bought not last and you didn't have the money to get more?: Never true Within the past 12 months, did you worry whether your food would run out before you got money to buy more?: Never true Do you have trouble paying for medicines?: No Do you have trouble getting transportation to medical appointments?: No Do you have trouble paying your heating and electricity bill?: No Do you have trouble taking care of your child, family member or friend?: No Do you have trouble with day-to-day activities such as bathing, preparing meals, shopping, managing finances, etc.?: No Are you currently unemployed and looking for a job?: No Are you interested in more education?: No Currently or been in a relationship where the following occur: Made to feel afraid THRIVE Score: 1 AUDIT C Alcohol Use Questionnaire (AUDIT-C) 1. How often do you have a drink containing alcohol?: Never 3. How often do you have six or more drinks on one occasion?: Never Total Score: 0 MARY-7 AMB Questionnaire MARY-7 Date MARY - 7 assessed: 12/30/24 Feeling nervous, anxious, or on edge: 0 = Not at all Not being able to stop or control worryin = Not at all Worrying too much about different things: 0 = Not at all Trouble relaxin = Not at all Being so restless that it is hard to sit still: 0 = Not at all Becoming easily annoyed or irritable: 0 = Not at all Feeling afraid as if something awful might happen: 0 = Not at all Total MARY-7 score (0-4 normal; 5-9 mild; 10-14 moderate; 15-21 severe): 0 Source: Developed by Drs. Latrell Mendes, Breonna Perales, Blane Alexis and colleagues, with an educational charissa from [employer]. Physical exam (Primary Care) Vital Signs: Last Vital Signs Pulse 77 12/30/24 13:27 BP 138/72 12/30/24 13:27 Pulse Ox 94 12/30/24 13:27 Oxygen Delivery Method Room Air 12/30/24 13:27 BMI result Body Mass Index 18.7 Tobacco/Smoking Status: Tobacco use Status Tobacco use date assessed 12/30/24 12/30/24 13:35 Patient Tobacco Use Status Never used Tobacco 12/30/24 13:35 Tobacco use type Cigarette 12/30/24 13:35 e-Cigarette/Vaping Use Never Used 12/30/24 13:35 PHQ-9: PHQ-9 Score PHQ-9: Total score 7 12/30/24 13:55 Depression Screening Interpretation: Positive Thrive Assessment: Date of Thrive Assessment Date Thrive assessed 12/30/24 12/30/24 13:35 Currently or been in a relationship where the following occur: Made to feel afraid Const General: alert; No acute distress Eyes Conjunctivae: conjunctivae normal Resp Auscultation: clear to auscultation bilaterally Cardio Rate: regular rate Rhythm: regular rhythm GI Inspection: Yes normal to inspection Extrem General: Yes normal to inspection and No edema Coding Level of Care Code Est Pt Level 4 (14327) Diagnoses Hypercholesterolemia E78.00 Essential hypertension I10 Hypertension type: essential hypertension Impaired glucose tolerance R73.02 Nonrheumatic aortic valve stenosis I35.0 Cardiac valve disease etiology: nonrheumatic Osteoarthritis of both knees, unspecified osteoarthritis type M17.0 Osteoarthritis type: unspecified Cough R05.9 Additional Codes PHQ-9 - 34929 - PHQ-9 Billing: Yes ([id number]) Assessment & Plan Assessment & Plan (1) Hypercholesterolemia: Code(s): E78.00 - Pure hypercholesterolemia, unspecified Category: Medical Plan: Avoid fried foods, chicken skin, eggs, butter margarine, pastries and meat. Be it pork or beef they have a lot of cholesterol on atorvastatin 20 mg once a day LDL goal of less than 130 and triglyceride of less than 150 patient needs blood work (2) HTN (hypertension): Code(s): I10 - Essential (primary) hypertension Category: Medical Qualifiers: Hypertension type: essential hypertension Qualified Code(s): I10 - Essential (primary) hypertension Plan: Continue with blood pressure medication. Decrease salt intake and exercise on losartan 100 mg once a day carvedilol 25 mg twice a day patient needs blood work (3) Impaired glucose tolerance: Code(s): R73.02 - Impaired glucose tolerance (oral) Category: Medical Plan: Decrease the amount of carbohydrate intake, pasta, bread, rice and potatoes are all sugar and that is aside from all the sweet stuff, remember that fruits are good but they are Sweet also. (4) Aortic stenosis: Comment: December 2021 1.29 cm 01/2023 moderate (but measured 0.86) 01/2024 0.98 cm squared Code(s): I35.0 - Nonrheumatic aortic (valve) stenosis Category: Medical Qualifiers: Cardiac valve disease etiology: nonrheumatic Qualified Code(s): I35.0 - Nonrheumatic aortic (valve) stenosis Plan: Continuing to monitor. January 2024 last test (5) Osteoarthritis of knees, bilateral: Code(s): M17.0 - Bilateral primary osteoarthritis of knee Category: Medical Qualifiers: Osteoarthritis type: unspecified Qualified Code(s): M17.0 - Bilateral primary osteoarthritis of knee Plan: Keep active. Patient follows up with orthopedics and has had injections. (6) Cough: Code(s): R05.9 - Cough, unspecified Category: Medical Plan: presently looking like viral infection lucian helps with productive plegm Plan History of Present Illness The patient is an 79-year-old female presenting for a follow-up on her chronic conditions, including hypercholesterolemia managed with atorvastatin, ischemic cardiomyopathy, and osteoarthritis in her knees, which affects her mobility despite recent injections. Chronic management of hypertension is ongoing with losartan and carvedilol. Recent upper respiratory symptoms include cough, phlegm, and a sore throat without fever, suspected to be viral. Cognitive impairment and anxiety disorder are noted, with ongoing concerns about maintaining current health, hence recent blood work was requested. Her medical history shows aortic stenosis, last evaluated in January via echocardiogram. Patient's management includes lifestyle considerations and continuous monitoring of critical vitals. Health Maintenance - Atorvastatin prescribed for hypercholesterolemia with target LDL and triglycerides. - Blood pressure management with losartan and carvedilol. - Regular orthopedic follow-up and steroid injections for knee osteoarthritis. - Blood work pending for medication monitoring, no immediate urgency. - Echocardiogram for aortic stenosis last performed in January, with future ongoing evaluation discussed. Social History - No specific discussion on employment or housing. - Family issues mentioned with ongoing tasks at home. - Mobility aid suggestions include breaks for sleep comfort. Review of Systems - Constitutional: Reports recent weight loss and fatigue. - Cardiovascular: Denies chest pain, but managing hypertension and cardiomyopathy. - Respiratory: Reports persistent cough with phlegm, runny nose, sore throat. - Musculoskeletal: Reports knee pain, receives regular injections for osteoarthritis. - Neurological: Reports cognitive impairment. - Psychiatric: Reports anxiety disorder, managing medications. Physical Exam - Ears- Minor earwax noted but patent. - Throat- Erythematous throat with no significant ulcerations or exudate. - Respiratory- Audible phlegm on cough, otherwise clear. Breathing normal. - Cardiovascular- Awaiting updated echocardiogram for aortic stenosis reassessment. Results - Labs: Blood work for cholesterol and medication monitoring pending. - Tests: Awaiting echocardiogram scheduling. - Diagnostics: None discussed regarding upper respiratory symptoms. Plan To address hypercholesterolemia, atorvastatin will continue as advised, and blood pressure therapies will remain unchanged with losartan and carvedilol. Knee osteoarthritis requires continual monitoring with steroid injections, administered every three months, balancing bone health considerations. For suspected viral respiratory infection, we'll pursue hydration and phlegm management, given the absence of bacterial infection indications. An echocardiogram remains relevant given the patient's history of aortic stenosis. Prompt blood tests for medication assessment are in place. Supportive care prioritizes hydration and Mucinex use. Patient was informed and verbally consented to the use of an ambient scribe for clinic note documentation during this visit. Discussion Notes During the consultation, we reviewed the control of chronic conditions such as hypercholesterolemia, ischemic cardiomyopathy, hypertension, and osteoarthritis of the knees. I emphasized the importance of maintaining cholesterol levels through atorvastatin therapy and managing hypertension under the current medication plan. I advised duly monitoring cognitive decline and anxiety, outlining continued visits with orthopedics for osteoarthritis management. I addressed the potential effects of steroid injections on bone health. Recent respiratory symptoms, suspected of viral origin, require hydration and possible Mucinex use for relief. Upcoming tests, such as an echocardiogram, have been discussed concerning aortic stenosis without urgency. Blood work evaluations are planned, reviewing the necessity of maintaining optimal health metrics, noting no urgency. We discussed potential outcomes, risks, and benefits for current medications and non-urgent interventions necessary for chronic and acute symptoms. Patient Instructions - Continue taking all prescribed medications as instructed. - Use Voltaren Gel for knee pain when needed. - Ensure adequate hydration and consider using Mucinex to manage phlegm production. - Schedule and complete upcoming echocardiogram and blood work with fasting. - Follow up in three months or sooner if respiratory symptoms worsen. - Avoid using Q-tips for ear cleaning. - Contact the clinic through our office portal if there are any health changes. Orders: Orders B Type Natriuretic Peptide Today I10 - Essential (primary) hypertension Vitamin D 25-OH Total Today I10 - Essential (primary) hypertension Hemoglobin A1c Today I10 - Essential (primary) hypertension CA echo transthoracic complete Today I35.0 - Nonrheumatic aortic (valve) stenosis Complete Blood Count Auto Diff Today I10 - Essential (primary) hypertension Comprehensive Met. Panel Today I10 - Essential (primary) hypertension Free T4 (Free Thyroxine) Today I10 - Essential (primary) hypertension Thyroid Stimulating Hormone Today I10 - Essential (primary) hypertension Lipid Panel Today E78.00 - Pure hypercholesterolemia, unspecified, I10 - Essential (primary) hypertension Vitamin B12 and Folate Today I10 - Essential (primary) hypertension Medications: Refilled atorvastatin 20 mg PO DAILY 90 tabs 1RF I10 - Essential (primary) hypertension carvedilol must administer with a meal/food 25 mg PO BID 180 tabs 2RF 90 days I10 - Essential (primary) hypertension losartan 100 mg PO DAILY 90 tabs 2RF 90 days I10 - Essential (primary) hypertension donepezil 5 mg PO BEDTIME 90 tabs 2RF R41.89 - Other symptoms and signs involving cognitive functions and awareness
== END 2024-12-30 14:14 | disposition home or self-care (01) ==
PROVIDERS: PCP Internal Medicine; Visit Provider Internal Medicine
DX: E78.00 Pure hypercholesterolemia, unspecified (principal); I10 Essential (primary) hypertension; R73.02 Impaired glucose tolerance (oral); I35.0 Nonrheumatic aortic (valve) stenosis; M17.0 Bilateral primary osteoarthritis of knee; R05.9 Cough, unspecified

== ENCOUNTER → 2024-12-30 13:22 | Outpatient (BNVA) | payer OTHER, SELFPAY | PROVIDERS: PCP Internal Medicine; Visit Provider Internal Medicine | DX: E78.00 Pure hypercholesterolemia, unspecified (principal); I10 Essential (primary) hypertension; R73.02 Impaired glucose tolerance (oral); I35.0 Nonrheumatic aortic (valve) stenosis; M17.0 Bilateral primary osteoarthritis of knee; R05.9 Cough, unspecified; Z79.899 Other long term (current) drug therapy | CPT/HCPCS: 96127; 99212 ==

== ENCOUNTER 2025-01-16 12:07 | Outpatient (REF) | payer OTHER, SELFPAY ==
[2025-01-16 14:07] LABS: MANUAL DIFF FLAG NO
[2025-01-16 14:13] LABS: Basophils Percent Auto 0.6 % (0-2); Eosinophils Absolute Auto 0.2 X10*3/uL (0.0-0.4); Eosinophils Percent Auto 3.6 % (0-4); Hematocrit 35.8 % (37.0-47.0); Hemoglobin 11.8 g/dl (12.0-16.0); Imm Gran Abs Auto 0.01 X10*3/uL (0.00-0.03); Imm Gran Pct Auto 0.2 % (0.0-0.4); Lymphocytes Absolute Auto 1.2 X10*3/uL (1.2-4.9); Mean Corpuscular Hemoglobin 30.5 pg (27.0-33.0); Mean Corpuscular Volume 92.5 fL (80.0-98.0); Mean Platelet Volume 12.1 fL (9.4-12.3); Monocytes Absolute Auto 0.4 X10*3/uL (0.1-1.2); Monocytes Percent Auto 8.4 % (2-11); Neutrophils Absolute Auto 3.2 x10*3/uL (2.0-8.3); Neutrophils Percent Auto 64.2 % (45-73); Platelet Count 194 X10*3/uL (160-400); Red Blood Count 3.87 X10*6/uL (4.20-5.50); Red Cell Distribution Width 12.5 % (11.0-16.0)
[2025-01-16 14:22] LABS: Estimated Average Glucose 117 mg/dL; Hemoglobin A1C 119.5313 umol/L; Hemoglobin A1c % 5.7 % (<6.0); Total Hemoglobin (HGBA1C) 3123.4012 umol/L
[2025-01-16 14:45] LABS: B Type Natriuretic Peptide 74 pg/mL (<100)
[2025-01-16 14:48] LABS: Alanine Aminotransferase 9 U/L (0-31); Albumin Level 4.2 g/dL (3.5-5.0); Alkaline Phosphatase 77 U/L (39-117); Anion Gap 11 (12-20); Aspartate Amino Transferase 18 U/L (5-31); Bilirubin Total 0.3 mg/dL (0.0-1.0); Blood Urea Nitrogen 21 mg/dL (9-16); Calcium 9.4 mg/dL (8.4-10.2); Carbon Dioxide 30 mmol/L (22-29); Chloride 104 mmol/L (96-108); Cholesterol 187 mg/dL (<200); Estimated Glomerular Filt Rate > 60; Glucose Random 83 mg/dL (60-115); HDL Cholesterol 66 mg/dL (>40); LDL Cholesterol Calculated 108 mg/dL (<100); Potassium 3.9 mmol/L (3.3-5.1); Sodium 141 mmol/L (135-145); Total Protein 7.2 g/dL (6.5-8.0); Triglycerides 69 mg/dL (<150)
[2025-01-16 15:03] LABS: Free T4 (Free Thyroxine) 0.94 ng/dL (0.71-1.85); Thyroid Stimulating Hormone 1.94 uIU/mL (0.32-4.0); Vitamin D 25-OH Total 17.1 ng/mL (>30)
[2025-01-16 15:16] LABS: Folate > 20.0 ng/mL (> or = 4.0); Vitamin B12 339 pg/mL (200-900)
== END 2025-01-16 12:08 | disposition home or self-care (01) ==
LOC: HO.HMGCLDS 12:07
PROVIDERS: PCP Internal Medicine; Visit Provider Internal Medicine
DX: I10 Essential (primary) hypertension (principal); E78.00 Pure hypercholesterolemia, unspecified; Z13.1 Encounter for screening for diabetes mellitus
CPT/HCPCS: 36415; 80053; 80061; 82306; 82607; 82746; 83036; 83880; 84439; 84443; 85025

== ENCOUNTER → 2025-01-29 10:49 | Outpatient (REF) | payer OTHER, SELFPAY ==
--- NOTE | 2025-01-29 10:52 | CA_ITS ---
Transthoracic Echocardiogram Patient (Last, First, Middle): Niya Noriega, Gender: Female Date of : 1945 Age: 79 Procedure Date: 01/29/2025 Procedure Type: Transthoracic Echocardiogram Location: OP Height: 142.24 cm Weight: 47. kg BSA: 1.34 m2 Heart Rate: 62 bpm BP: 130 / 70 mmHg Wiring Mechanic: RAHUL Referring MD: Ted Diallo MD Symptoms: I35.0 - Nonrheumatic aortic (valve) stenosis Study Quality: Adequate ECG Rhythm: Sinus Conclusions: - Normal left ventricular size and systolic function. There is mildly increased left ventricular wall thickness. The visually estimated ejection fraction is between 55-60%. - E/E prime ratio is >15, consistent with elevated filling pressures. - Normal right ventricular cavity size and systolic function. - There is moderate aortic valve stenosis. Findings Left Ventricle Normal left ventricular size and systolic function. There is mildly increased left ventricular wall thickness. The visually estimated ejection fraction is between 55-60%. There is no evidence of regional wall motion abnormalities. Abnormal diastolic function is noted. Spectral Doppler is indicative of an impaired relaxation filling pattern. E/E prime ratio is >15, consistent with elevated filling pressures. Right Ventricle Normal right ventricular cavity size and systolic function. Atria The left atrium is severely dilated. The right atrium is normal in size. Aortic Valve There is a normal trileaflet aortic valve. There is moderate calcification of the aortic valve. There is moderate aortic valve stenosis. The peak aortic velocity is 2.50 m/s. The mean gradient is 14 mmHg. The aortic valve area is 1.01 cm2. There is trace (trivial) aortic valve regurgitation. Mitral Valve There is mild mitral annular calcification. There is no mitral valve regurgitation. There is no mitral valve stenosis. Pulmonic Valve The pulmonic valve is likely normal. Tricuspid Valve Normal tricuspid valve structure. There is trace tricuspid valve regurgitation. Normal right atrial pressure. There is no evidence of pulmonary hypertension. Great Vessels All visible segments of the aorta are normal in size. Venous The inferior vena cava is normal in size and collapses greater than 50% with inspiration. Pericardium/Pleural There is no evidence of pericardial effusion. Prior Study Comparison No significant change compared to prior study dated: 01/30/2024. Measurements 2D Linear Measurements IVSd: 0.98 0.6-0.9/0.6-1.0 cm LVIDd: 4.62 3.9-5.3/4.2-5.9 cm LVIDd Index: 3.45 2.4-3.2/2.2-3.1 cm/m2 LVIDs: 3.25 2.0-3.6 cm LVPWd: 1.10 0.7-1.1 cm LA Diam: 2.20 2.7-3.8/3.0-4.0 cm LAIDs Index: 1.64 1.5-2.3 cm/m2 LV Mass: 210.24 67-162/88-224 g LV Mass Index: 156.89 43-95/49-115 g/m2 LVOT Diam: 1.90 3.0+(-)1.3 cm 2D Systolic Function EF 4C: 56.30 >55% EF 2C: 69.50 >55% EF BiP: 61.90 >55% Mitral Valve MV Pk E: 0.95 MV PK A: 1.24 MV Decel Time: 307.00 E/A: 0.80 E'Lateral: 6.74 E'Medial: 5.77 E/E' Med: 16.50 E/E' Lat: 14.20 PHT: 90.00 MVA PHT: 2.44 Decel [place]: 3.10 Aortic Valve AoV Pk Mina: 2.50 AoV Mn Mina: 1.79 AoV VTI: 0.63 AoV Pk Grad: 25.00 Aov Mn Grad: 14.00 TEDDY Cont.VTI: 1.01 AI Pk Mina: 4.09 AI [place]: 2.46 LVOT LVOT Pk Mina: 0.90 LVOT Mn Mina: 0.65 LVOT VTI: 0.22 LVOT Pk Grad: 3.00 LVOT Mn Grad: 2.00 LVOT Diam: 1.90 LVOT Area: 2.84 Diastolic Function MV Pk E: 0.95 MV Pk A: 1.24 E/A: 0.80 E'Medial: 5.77 E/E' Med: 16.50 E' Laterial: 6.74 E/E' Lat: 14.20 Right Ventricle TAPSE (mm): 27.30 TVS' Mina: 11.00 Tricuspid Valve TR Pk Mina: 2.22 TR Pk Grad: 20.00 RA Press: 3.00 RVSP: 23.00 Great Vessels Aorta Sinus of Valsalva: 3.00 2.0-3.5 cm Ao Asc: 3.30 2.1-3.4 cm Ao Arch: 2.60 Pulmonary Valve PV Pk Mina: 0.80 Peak PV Grad: 3.00 Updated in Other Vendor System with Status of Final Oj Rios MD electronically signed on 01/31/2025 11:08:00 PM with status of Final
== END ==
LOC: HO.CARD 10:49
PROVIDERS: PCP Internal Medicine; Visit Provider Internal Medicine
DX: I35.0 Nonrheumatic aortic (valve) stenosis (principal)
CPT/HCPCS: 93306

== ENCOUNTER → 2025-01-29 10:52 | Outpatient (BNV) | payer OTHER, SELFPAY | PROVIDERS: PCP Internal Medicine; Visit Provider Internal Medicine Cardiovascular Disease | DX: I35.2 Nonrheumatic aortic (valve) stenosis with insufficiency (principal); I35.8 Other nonrheumatic aortic valve disorders; I34.81 Nonrheumatic mitral (valve) annulus calcification | CPT/HCPCS: 93306 ==

== ENCOUNTER 2025-03-29 15:06 | Outpatient (AMB) | payer OTHER, SELFPAY ==
--- NOTE | 2025-03-29 15:47 | MHC.OFFVIS ---
Vital Signs 03/29/25 16:01 Height 5 ft 2 in Weight 102 lb BMI 18.7 Intake Visit Reasons: B/L knee OA (80), last inj 09/22/24 Intake Note: Niya is a 79 year old female who presents today for repeat injections for her bilateral knee OA (80), last injection 09/22/24. Patient reports her last injection lasted her about 3 months and would like to repeat. Allergies No Known Allergies Allergy (Verified 03/29/25 16:01) HPI HPI B/L knee OA (80), last inj 09/22/24: Details: Brandon Noriega is an 79-year-old female who presents to the office today for bilateral knee osteoarthritis with chronic pain. She would like to repeat cortisone injection while the office. Last injection was 09/22/2024. COUNTS INCLUDE 234 BEDS AT THE [facility] Medical History (Updated 02/01/25 @ 14:28 by Ted Diallo MD) Left wrist sprain Elbow fracture, left Injury of left elbow Aortic stenosis LBBB (left bundle branch block) Osteoarthritis Anxiety Vitamin D deficiency Impaired glucose tolerance Hypercholesterolemia Cataract Hyperlipidemia HTN (hypertension) Surgical History History of cataract surgery History of section Family History (Updated 06/26/23 @ 08:38 by DE Ellison) Father Cancer Mother Hypertension Brother No problems noted. Sister No problems noted. Son No problems noted. Daughter No problems noted. Social History Housing: Apartment Alcohol intake: never Patient Tobacco Use Status: Never used Tobacco Tobacco use type: Cigarette e-Cigarette/Vaping Use: Never Used Second Hand Smoke Exposure: No service: No Current occupational status: disabled Current occupation: rt handed Cognitive needs: Yes Hearing needs: No Vision needs: No Review of Systems Const All systems reviewed & are unremarkable except as noted in HPI and below Physical Exam Vital Signs: BMI result Body Mass Index 18.7 Const General: cooperative, healthy appearing and no acute distress Resp Effort & Inspection: normal respiratory effort and able to speak in complete sentences Extrem Other: Bilateral knees skin intact, no erythema or joint effusion. Tenderness along the medial joint line. Creptius felt with ROM. NVI. Office Procedures AMB Joint Injection/Aspiration Joint Injection/Aspiration Primary Site: right knee Secondary Site: left knee Prep: site was prepped using aseptic technique, ethochloride spray was applied and injection warnings given Injected: 80 mg of, DepoMedrol, with 8 mL of (2% plain lidocaine) and in the joint Approach Used: anterolateral Procedure: The patient tolerated the procedure well, but had some pain with the injection and there was some relief with the local anesthesia Coding 83231 - Bilateral Large Joint Procedure code (CPT) selection complete Assessment & Plan Assessment & Plan (1) Osteoarthritis of knees, bilateral: Code(s): M17.0 - Bilateral primary osteoarthritis of knee Category: Medical Qualifiers: Osteoarthritis type: unspecified Qualified Code(s): M17.0 - Bilateral primary osteoarthritis of knee Plan The patient was offered a cortisone injection in bilateral knees with 80 mg of DepoMedrol. The patient was explained the risks, benefits, and alternatives to receiving this injection. After receiving consent for the injection, the patient had the procedure done while in the office today. The patient tolerated the procedure well with no complications. Follow-up will be PRN, or sooner if needed Coding Level of Care Code Est Pt Level 3 (21244) Diagnoses Osteoarthritis of both knees, unspecified osteoarthritis type M17.0 Osteoarthritis type: unspecified CPT Codes Coding - 11961 - Bilateral Large Joint: 29934 - Bilateral Large Joint ([id number])
[2025-03-29 16:01] VITALS: BMI 18.7
== END 2025-03-29 16:01 | disposition home or self-care (01) ==
LOC: HO.HOS 15:07
PROVIDERS: PCP Internal Medicine; Visit Provider Physician Assistant
DX: M17.0 Bilateral primary osteoarthritis of knee (principal)
CPT/HCPCS: 20610; 99213

== ENCOUNTER → 2025-03-29 15:06 | Outpatient (BNVA) | payer OTHER, SELFPAY | PROVIDERS: PCP Internal Medicine; Visit Provider Physician Assistant | DX: M17.0 Bilateral primary osteoarthritis of knee (principal) | CPT/HCPCS: 20610; 99212; J1010; J2003 ==

== ENCOUNTER 2025-04-23 14:33 | Outpatient (AMB) | payer OTHER, SELFPAY ==
--- NOTE | 2025-04-23 14:36 | MHC.PC.OV ---
Vital Signs 04/23/25 14:37 Height 5 ft 2 in Weight 108 lb BMI 19.8 BP 122/72 Blood Pressure Location Lt brachial Position Sitting Temp 97.1 F Temp Source Temporal Artery Scan Intake Visit Reasons: Hypertension Intake Note: Patient is here to follow up on HTN. Warehouse Director Required: Yes Warehouse Director Language: Manufacturing Lab Technician Name: Ginger (daughter) Information Interpreted: non-clinical & clinical (Pt decline mounter clarinets service prefer daughter to translate) Licensed Weigher: Present Accompanied by: Daughter Allergies No Known Allergies Allergy (Verified 04/23/25 14:37) Medication List - Last Reconciled 04/23/25 by Ted Diallo MD alprazolam 0.25 mg PO DAILY PRN atorvastatin 20 mg PO DAILY [BEDSIDE COMMODE As directed] blood pressure monitor (Blood Pressure Kit) As directed carvedilol 25 mg PO BID 90 days cholecalciferol (vitamin D3) 50 mcg PO DAILY 90 days donepezil 5 mg PO BEDTIME [ENSURE As directed] [KNEE SLEEVE As directed bilateral] losartan 100 mg PO DAILY 90 days [Pull ups As directed] [ROLLATOR As directed] [toilet seat 1 ea miscellaneous .each] Tobacco use date assessed: 04/23/25 Fall risk assessment: No Falls in past year Last assessed Fall Risk: 04/23/25 Dental Screening Dental Screen Date: 12/30/24 [facility] Medical History (Updated 04/23/25 @ 14:44 by Ted Diallo MD) Left wrist sprain Elbow fracture, left Injury of left elbow Aortic stenosis LBBB (left bundle branch block) Osteoarthritis Anxiety Vitamin D deficiency Impaired glucose tolerance Hypercholesterolemia Cataract Hyperlipidemia HTN (hypertension) Surgical History History of cataract surgery History of section Family History Father Cancer Mother Hypertension Brother No problems noted. Sister No problems noted. Son No problems noted. Daughter No problems noted. Social History Housing: Apartment Alcohol intake: never Patient Tobacco Use Status: Never used Tobacco Tobacco use type: Cigarette e-Cigarette/Vaping Use: Never Used Second Hand Smoke Exposure: No service: No Current occupational status: disabled Current occupation: rt handed Cognitive needs: Yes Hearing needs: No Vision needs: No Questionnaire PHQ-9 Over the last 2 weeks, how often have you been bothered by any of the following problems? 1. Little interest or pleasure in doing things: not at all 2. Feeling down, depressed, or hopeless: not at all 3. Trouble falling or staying asleep, or sleeping too much: not at all 4. Feeling tired or having little energy: not at all 5. Poor appetite or overeating: not at all 6. Feeling bad about yourself - or that you are a failure or have let yourself or your family down: not at all 7. Trouble concentrating on things, such as reading the newspaper or watching television: not at all 8. Moving or speaking so slowly that other people could have noticed. Or the opposite - being so fidgety or restless that you have been moving around a lot more than usual: not at all 9. Thoughts that you would be better off or of hurting yourself in some way: not at all Total score: 0 Source: Developed by Drs. Latrell Mendes, Breonna Perales, Blane Alexis and colleagues, with an educational charissa from [facility]. Thrive Questionnaire Date Thrive assessed: 04/18/25 I am a: Patient What is your living situation today?: I have a steady place to live Within the past 12 months, did the food you bought not last and you didn't have the money to get more?: Sometimes True Within the past 12 months, did you worry whether your food would run out before you got money to buy more?: Sometimes True Do you have trouble paying for medicines?: No Do you have trouble getting transportation to medical appointments?: No Do you have trouble paying your heating and electricity bill?: No Do you have trouble taking care of your child, family member or friend?: No Do you have trouble with day-to-day activities such as bathing, preparing meals, shopping, managing finances, etc.?: No Are you currently unemployed and looking for a job?: No Are you interested in more education?: No Please select the resources that you would like help with: None Currently or been in a relationship where the following occur: No concerns reported THRIVE Score: 2 AUDIT C Alcohol Use Questionnaire (AUDIT-C) 1. How often do you have a drink containing alcohol?: Never 3. How often do you have six or more drinks on one occasion?: Never Total Score: 0 MARY-7 AMB Questionnaire MARY-7 Date MARY - 7 assessed: 12/30/24 Feeling nervous, anxious, or on edge: 0 = Not at all Not being able to stop or control worryin = Not at all Worrying too much about different things: 0 = Not at all Trouble relaxin = Not at all Being so restless that it is hard to sit still: 0 = Not at all Becoming easily annoyed or irritable: 0 = Not at all Feeling afraid as if something awful might happen: 0 = Not at all Total MARY-7 score (0-4 normal; 5-9 mild; 10-14 moderate; 15-21 severe): 0 Source: Developed by Drs. Latrell Mendes, Breonna Perales, Blane Alexis and colleagues, with an educational charissa from [facility]. Physical exam (Primary Care) Vital Signs: Last Vital Signs Temp 97.1 F 04/23/25 14:37 BP 122/72 04/23/25 14:37 BMI result Body Mass Index 19.8 Tobacco/Smoking Status: Tobacco use Status Tobacco use date assessed 04/23/25 04/23/25 14:45 Patient Tobacco Use Status Never used Tobacco 04/23/25 14:45 Tobacco use type Cigarette 04/23/25 14:45 e-Cigarette/Vaping Use Never Used 04/23/25 14:45 PHQ-9: PHQ-9 Score PHQ-9: Total score 0 04/23/25 14:45 Thrive Assessment: Date of Thrive Assessment Date Thrive assessed 04/18/25 04/23/25 14:45 Currently or been in a relationship where the following occur: No concerns reported Const General: alert; No acute distress Eyes Conjunctivae: conjunctivae normal Resp Auscultation: clear to auscultation bilaterally Cardio Rate: regular rate Rhythm: regular rhythm GI Inspection: Yes normal to inspection Extrem General: Yes normal to inspection and No edema Coding Level of Care Code Est Pt Level 4 (41848) Complex EM visit Add On G2211 Diagnoses Essential hypertension I10 Hypertension type: essential hypertension Nonrheumatic aortic valve stenosis I35.0 Cardiac valve disease etiology: nonrheumatic Hypercholesterolemia E78.00 Impaired glucose tolerance R73.02 Age-related osteoporosis without current pathological fracture M81.0 Bilateral primary osteoarthritis of knee M17.0 Cognitive impairment R41.89 Assessment & Plan Assessment & Plan (1) HTN (hypertension): Code(s): I10 - Essential (primary) hypertension Category: Medical Qualifiers: Hypertension type: essential hypertension Qualified Code(s): I10 - Essential (primary) hypertension Plan: Continue with blood pressure medication. Decrease salt intake and exercise on carvedilol 25 mg twice a day losartan 100 mg once a day (2) Aortic stenosis: Comment: December 2021 1.29 cm 01/2023 moderate (but measured 0.86) 01/2024 0.98 cm squared 01/2025 1.01 cm Code(s): I35.0 - Nonrheumatic aortic (valve) stenosis Category: Medical Qualifiers: Cardiac valve disease etiology: nonrheumatic Qualified Code(s): I35.0 - Nonrheumatic aortic (valve) stenosis Plan: Continue to monitor January 2025 last echocardiogram 1.01 cm2 moderate (3) Hypercholesterolemia: Code(s): E78.00 - Pure hypercholesterolemia, unspecified Category: Medical Plan: Avoid fried foods, chicken skin, eggs, butter margarine, pastries and meat. Be it pork or beef they have a lot of cholesterol LDL goal of less than 130 and triglyceride of less than 150 patient on atorvastatin 20 mg once a day (4) Impaired glucose tolerance: Code(s): R73.02 - Impaired glucose tolerance (oral) Category: Medical Plan: Decrease the amount of carbohydrate intake, pasta, bread, rice and potatoes are all sugar and that is aside from all the sweet stuff, remember that fruits are good but they are Sweet also. (5) Age-related osteoporosis without current pathological fracture: Code(s): M81.0 - Age-related osteoporosis without current pathological fracture Category: Medical Plan: Discussed with the patient regarding calcium and vitamin-D and bone density request (6) Bilateral primary osteoarthritis of knee: Code(s): M17.0 - Bilateral primary osteoarthritis of knee Category: Medical Plan: Patient has seen ortho and has recommended injections (7) Cognitive impairment: Code(s): R41.89 - Other symptoms and signs involving cognitive functions and awareness Category: Medical Plan History of Present Illness The patient is an 79-year-old female presenting for a follow-up visit. The patient has a history of ischemic cardiomyopathy, hypertension, and hypercholesterolemia. She is currently on carvedilol 25 mg twice a day and losartan 100 mg once a day for blood pressure management. Her LDL cholesterol was recorded at 108 mg/dL, and she is on atorvastatin 20 mg once a day. The patient also has impaired glucose tolerance with a hemoglobin A1c of 5.7%. She has been advised to monitor her blood sugar levels regularly. The patient has a history of generalized anxiety disorder and cognitive impairment. She experiences stress incontinence, which is managed through pelvic floor exercises. The patient has moderate aortic stenosis, with the last echocardiogram performed in January 2025 showing a valve area of 1.01 cm?. She is under regular monitoring for this condition. The patient has bilateral knee osteoarthritis and received injections in March 2021. She has been advised to continue with orthopedic follow-up as needed. Recent blood work from January 16 showed mild anemia with normal electrolytes, renal function, and liver function tests. Vitamin D levels remain low, and supplementation has been discussed. B12 and thyroid function tests were normal. Health Maintenance - Pneumonia and tetanus vaccinations are up to date. - Discussed calcium and vitamin D supplementation for bone health. Social History - The patient is advised to maintain hydration despite reluctance due to urinary incontinence concerns. Review of Systems - Cardiovascular: Reports history of ischemic cardiomyopathy and hypertension. Denies chest pain or palpitations. - Musculoskeletal: Reports bilateral knee pain due to osteoarthritis. Denies recent falls or injuries. - Endocrine: Reports impaired glucose tolerance. Denies symptoms of hypoglycemia. - Neurological: Reports cognitive impairment. Denies headaches or dizziness. - Psychiatric: Reports generalized anxiety disorder. Denies depression. - Genitourinary: Reports stress incontinence. Denies urinary tract infections. Physical Exam Results - Labs: Mild anemia, normal electrolytes, renal function, liver function, B12, and thyroid tests. Vitamin D deficiency noted. - Imaging: Echocardiogram in January 2025 showed moderate aortic stenosis with a valve area of 1.01 cm?. Plan The management plan for the patient's ischemic cardiomyopathy includes continued use of carvedilol and losartan for blood pressure control. Regular monitoring of blood pressure and cholesterol levels is advised, with atorvastatin prescribed to maintain LDL levels below 130 mg/dL. For impaired glucose tolerance, the patient is advised to monitor blood sugar levels regularly and maintain a balanced diet. Vitamin D supplementation is recommended to address the deficiency. The patient is encouraged to perform pelvic floor exercises to manage stress incontinence and maintain hydration despite urinary concerns. Regular follow-up with orthopedics for knee osteoarthritis is advised, with injections as needed. The patient should continue regular monitoring for aortic stenosis, with echocardiograms as indicated. Patient was informed and verbally consented to the use of an ambient scribe for clinic note documentation during this visit. Discussion Notes During the visit, I discussed the importance of maintaining blood pressure and cholesterol levels within target ranges, emphasizing the role of medications such as carvedilol, losartan, and atorvastatin. We reviewed the need for regular blood sugar monitoring and dietary management for impaired glucose tolerance. I advised on the benefits of vitamin D supplementation and encouraged pelvic floor exercises to manage stress incontinence. The patient was informed about the necessity of regular follow-up for aortic stenosis and knee osteoarthritis, with echocardiograms and orthopedic consultations as needed. Patient Instructions - Continue taking carvedilol and losartan as prescribed for blood pressure control. - Take atorvastatin daily to maintain cholesterol levels. - Monitor blood sugar levels regularly and maintain a balanced diet. - Take vitamin D supplements as advised. - Perform pelvic floor exercises to help with stress incontinence. - Stay hydrated despite urinary concerns. - Follow up with orthopedics for knee osteoarthritis as needed. - Schedule regular echocardiograms to monitor aortic stenosis. Orders: Orders XR DEXA axial skeleton Today M81.0 - Age-related osteoporosis without current pathological fracture Referrals Neurology Referral R41.89 - Other symptoms and signs involving cognitive functions and awareness Medications: New cholecalciferol (vitamin D3) 50 mcg PO DAILY 90 caps 3RF 90 days E55.9 - Vitamin D deficiency, unspecified [SHOWER CHAIR] As directed 1 ea 0RF M17.0 - Bilateral primary osteoarthritis of knee
[2025-04-23 14:37] VITALS: BP 122/72; TEMP 36.2; BMI 19.8
== END 2025-04-23 15:05 | disposition home or self-care (01) ==
LOC: HO.HMCH 14:34
PROVIDERS: PCP Internal Medicine; Visit Provider Internal Medicine
DX: I10 Essential (primary) hypertension (principal); I35.0 Nonrheumatic aortic (valve) stenosis; E78.00 Pure hypercholesterolemia, unspecified; R73.02 Impaired glucose tolerance (oral); M81.0 Age-related osteoporosis without current pathological fracture; M17.0 Bilateral primary osteoarthritis of knee; R41.89 Other symptoms and signs involving cognitive functions and awareness

== ENCOUNTER → 2025-04-23 14:33 | Outpatient (BNVA) | payer OTHER, SELFPAY | PROVIDERS: PCP Internal Medicine; Visit Provider Internal Medicine | DX: I10 Essential (primary) hypertension (principal); I35.0 Nonrheumatic aortic (valve) stenosis; E78.00 Pure hypercholesterolemia, unspecified; R73.02 Impaired glucose tolerance (oral); M81.0 Age-related osteoporosis without current pathological fracture; M17.0 Bilateral primary osteoarthritis of knee; R41.89 Other symptoms and signs involving cognitive functions and awareness; I42.9 Cardiomyopathy, unspecified | CPT/HCPCS: 99212 ==

== ENCOUNTER → 2025-06-10 14:30 | Outpatient (BNV) | payer OTHER, SELFPAY | PROVIDERS: PCP Internal Medicine; Visit Provider Radiology Diagnostic Radiology | DX: E28.39 Other primary ovarian failure (principal) | CPT/HCPCS: 77080 ==

== ENCOUNTER 2025-06-10 14:33 | Outpatient (REF) | payer OTHER, SELFPAY ==
--- NOTE | ~2025-06-10 | MM_ITS ---
EXAMINATION: DXA BONE DENSITY AXIAL HISTORY: M81.0 - Age-related osteoporosis without current pathological fracture TECHNIQUE: [employer] Dual energy absorptiometry (DEXA) of the lumbar spine, total left hip, and femoral neck was performed. COMPARISON: Comparison is made with the prior examination dated 06/12/2022. FINDINGS: The bone mineral density of the lumbar spine is 1.008 g/cm2, corresponding to a T-score of -1.4, and a Z-score of 1.1. This is indicative of osteopenia. This represents a BMD change of -10.2% compared to the prior exam. This is statistically significant. The bone mineral density of the left total hip is 0.706 g/cm2, corresponding to a T-score of -2.4, and a Z-score of 0.2. This is indicative of osteopenia. This represents a BMD change of -9.9% compared to the prior exam. This is statistically significant. The bone mineral density of the left femoral neck is 0.698 g/cm2, corresponding to a T-score of -2.4, and a Z-score of 0.2. This is indicative of osteopenia. This represents a BMD change of 2.5% compared to the prior exam. FRACTURE RISK: The FRAX index suggests a ten year probability of major osteoporotic fracture of 11.8%, and of hip fracture 4.0%. MM/XR DEXA axial skeleton IMPRESSION: Based on bone mineral density, and according to World Health Organization (WHO) criteria, the diagnosis is consistent with osteopenia. Statistically, 68% of repeat scans fall within 1 SD (+/- 0.010 g/cm2 for AP spine L1-L4) and 1 SD (+/- 0.012 g/cm2 for femur total) FRAX is a trademark of the [employer]'s [place] [facility] Metabolic Bone Disease, a World Health Organization (WHO) Collaborating Center. Electronically signed by: Latrell Gonzalez MD 06/11/2025 07:06 AM EDT
== END 2025-06-10 14:34 | disposition home or self-care (01) ==
LOC: HO.MAMMO 14:33
PROVIDERS: PCP Internal Medicine; Visit Provider Internal Medicine
DX: M81.0 Age-related osteoporosis without current pathological fracture (principal)
CPT/HCPCS: 77080